=== PATIENT | female | born 1960 | race Caucasian/White ===

== ENCOUNTER 2018-11-03 10:00 | Outpatient (RCR) | payer SELFPAY ==
--- NOTE | 2018-09-03 13:05 | HP.PTEVAL_ITS ---
Patient's Visit Information LUH ALBARRAN is a 58 year old F referred to Physical Therapy by Zac Meyer DPM with a diagnosis of LEFT POSTERIOR TIBILAS TENDONITIS. Date of Evaluation: 09/03/18 Physical Therapist: Rudi Gomes PT, Cert MDT, OCS - Visit Plan Frequency: 2x /Week Duration: 4 Weeks Plan: PATIENT IS LATEX ALLERGY ,ADHESIVE TAPE. PATIENT HAS ORTHOTICS IN SHOES. INTIALLY US ,INTO WITH 4% DEX EXTENDED PATCH ,ROM STRENGTHENING EX'S FRITZ - Subjective Findings: This 58 y/o female presents to physical therapy with left posterior tibial tendontis for 2 years which has progressively worse past several months. Intially,tried brace per Betsy and provided orthothitcs which helped. Patient had MRI showed posterior tibial tendonitis. Patient symptoms worse with walking and standing impairs housework chores and ADL'S.Denies parathesia/tingling. Patient pain affects sleeping.ALLERGIES : LATEX ,ADHESIVE TAPE. Patient symptoms affect QOL and ADL'S/housework chores. SOCAIL: . VOCATION: homemaker - Pain Right Foot Pain Intensity (Out of 10): 8 Pain Intensity Range: 10 - Objective POSTURE: MEDIAL. GAIT: ambulates with anatalgic gait left side. NEURO: intact denies parathesia/tingling. PALPATION: tender posterior tibilalas tendon. AROM: dorsiflexion 10 degrees,Planterflexion 65 degrees,inversion 40 degrees,eversion 5 degrres. MMT: DF 4/5,posterior tibials tendon 4-/5 pain perneous 4/5 ,G-S 4-/5 MILD PAIN - Goals Goal 1:: Patient to be Independant with HEP Goal Time Frame: 2-4 Weeks Goal 2:: Decrease pain PTT by 40% -50% or greater to improve function with gait Goal Time Frame: 4-6 Weeks Goal 3:: Patient ambulate with normal myles 80% of the time Goal Time Frame: 2-4 Weeks Goal 4:: Increase strength ankle 4/5 posterior tibials to improve arch support Goal Time Frame: 2-4 Weeks Goal 5:: Patient to improve LEFS score by 5 points or greater Goal Time Frame: 2-4 Weeks - Rehabilitation Potential Physical Therapy Diagnosis: This patient has left posterior tibilas tendon for 2 years with pain,tender posterior tibilas impairs walking,standing and ADL'S,TE Rehabilitation Potential: Good - Anticipated Interventions Patient/Client Instruction: Educate patient on: Condition, Plan of Care For the Purpose of:: To decrease pain, To increase ROM, To improve ability to perform ADL's, To increase tolerance to activity/condition/position, To improve ability of physical actions for home/community/work/leisure, To improve health of tissue, To decrease soft tissue restriction, To increase flexibility/ROM, To improve ability to perform tasks related to life management Therapeutic Exercise to Include: Strength training, Flexibilty training, Active ROM Comment: ANKLE For the Purpose of:: To decrease pain, To improve nutrient delivery to tissue, To increase oxygenation perfusion, To improve muscle performance and motor function, To increase tolerance to activity/condition/position, To improve performance and independence with ADL's, To improve health of tissue, To decrease soft tissue restriction, To increase flexibility/ROM, To reduce risk of recurrence Iontophoresis (with Dexamethozone, with Acetic acid): Yes - 4% DEX Cryotherapy (ice pack, ice massage): Yes Thermo therapy (hot pack): Yes Ultrasound (thermal/non thermal): Yes For the Purpose of:: To decrease pain, To decrease swelling/inflammation, To increase ROM, To improve nutrient delivery to tissue, To increase oxygenation perfusion, To improve health of tissue, To decrease soft tissue restriction Thank you for the opportunity to evaluate your patient. For Medicare and Medicare HMO plans, please review the plan of care and approve it. It will need to be FAXED BACK to us at [phone] for Medicare purposes. For Medicare only, by signing this I certify the plan of care. Please let me know if there are questions or concerns regarding this plan of c are. Physician Signature: Date:
--- NOTE | 2018-11-04 11:56 | HP.PTDCSUM ---
HP - PT D/C Summary It has been my pleasure to treat LUH ALBARRAN under orders from Zac Meyer DPM, for the diagnosis of LEFT POSTERIOR TIBILAS TENDONITIS for a total of 7 visit(s). Discharge Date: 11/04/18 Please see the following information for a summary of their discharge status. - Subjective Subjective: Patient doing better,siffness in ankle joint - Pain Right Foot Pain Intensity (Out of 10): 1 - Overall Improvement % Improvement: 75 - Objective Objective/Function: GAIT: normal cadance. NEURO:intact. AROM: dorsiflexion 5 degrees ,eversion 10,inversion 35 degrees,plantarflexion 65 degrees. MMT: 4/5 ankle. PALPATION: unremarkable - Goals Goal 1:: Patient to be Independant with HEP Goal Progress: Goal Met Goal 2:: Decrease pain PTT by 40% -50% or greater to improve function with gait Goal Progress: Goal Met Goal 3:: Patient ambulate with normal myles 80% of the time Goal Progress: Goal Met Goal 4:: Increase strength ankle 4/5 posterior tibials to improve arch support Goal Progress: Goal Met Goal 5:: Patient to improve LEFS score by 5 points or greater Goal Progress: Goal Met - Plan Plan: D/C TO HEP - D/C Information Discharge Comments: HEP If there are questions or concerns regarding this patient's physical therapy, please feel free to call me at [phone]. Thank you for the referral of this patient. Sincerely, Rudi Gomes, PT, Cert MDT, OCS
== END 2018-11-03 19:00 | disposition home or self-care (01) ==
LOC: PT 10:00
PROVIDERS: Family Provider Family Medicine; PCP Family Medicine; Referring Provider Podiatrist; Visit Provider Podiatrist
DX: M76.822 Posterior tibial tendinitis, left leg (principal)
CPT/HCPCS: 97033; 97035; 97162; 97530

== ENCOUNTER → 2019-10-22 20:00 | Outpatient (CLI) | payer SELFPAY ==
[2019-10-05 10:56] VITALS: BMI 34.0
== END ==
PROVIDERS: PCP Family Medicine; Referring Provider Internal Medicine Cardiovascular Disease; Visit Provider Internal Medicine Cardiovascular Disease
DX: G47.10 Hypersomnia, unspecified (principal); I10 Essential (primary) hypertension; R06.83 Snoring; R07.9 Chest pain, unspecified; R94.31 Abnormal electrocardiogram [ECG] [EKG]
CPT/HCPCS: 95810

== ENCOUNTER → 2019-10-25 09:30 | Outpatient (CLI) | payer SELFPAY ==
[2019-10-05 10:56] VITALS: BMI 34.0
--- NOTE | 2019-10-25 09:34 | ECHOD_ITS ---
Reason For Study: CP, ABN EKG Procedure This was a 2D Doppler, Color Flow transthoracic echocardiogram. Exam performed in department. Left Ventricle Normal size and thickness. The estimated ejection fraction is 65 %. Stage 1 diastolic dysfunction. No regional wall motion abnormalities noted. Right Ventricle Normal size and thickness. Normal systolic function. Atria Normal left atrium. Normal right atrium. Normal atrial septum. Mitral Valve The mitral valve is structurally normal. No prolapse or stenosis seen. Trivial mitral valve insufficiency. Tricuspid Valve Normal tricuspid valve. Unable to estimate RV systolic pressure due to insufficient tricuspid regurgitant envelope. Aortic Valve Normal aortic valve. Trisinus/trileaflet aortic valve. Pulmonic Valve Normal pulmonic valve. Great Vessels Normal aortic root. Normal arch. Normal inferior vena cava. Inferior vena cava collapse with sniff. Pericardium/Pleural No pericardial effusion. MMode/2D Measurements & Calculations LVIDd: 3.8 cm IVSd: 1.2 cm Ao root diam: 3.5 cm LVIDs: 2.6 cm LVPWd: 1.2 cm FS: 32.3 % LAV(MOD-bp): 43.7 ml LA A4 area: 15.6 cm2 LA dimension(2D): 3.6 cm LAV(MOD-bp) Indexed: 21.1 ml/m2 LAV(MOD-sp2): 49.8 ml LAV(MOD-sp4): 37.7 ml RA A4 area: 10.1 cm2 Time Measurements MV dec time: 0.25 sec Doppler Measurements & Calculations MV E max thad: 69.6 cm/sec Lat Peak E' Thad: 7.4 cm/sec Med Peak E' Thad: 3.7 cm/sec MV A max thad: 83.2 cm/sec E/E' lat: 9.4 E/E' med: 18.6 MV E/A: 0.84 Ao V2 max: 142.3 cm/sec LV V1 max: 125.7 cm/sec Ao max P.1 mmHg LV V1 max P.3 mmHg Interpretation Summary The estimated ejection fraction is 65 %. Stage 1 diastolic dysfunction. Trivial mitral valve insufficiency. Unable to estimate RV systolic pressure due to insufficient tricuspid regurgitant envelope. There is no comparison study available. Ordering Physician: Ramon France Referring Physician: CHARLOTTE MITCHELL Performed By: Breana Mobley, VALERIA, RVT
--- NOTE | 2019-10-25 09:34 | STE_ITS ---
Reason For Study: Abnormal EKG; Chest Pain Stress Results Protocol: Nicolás Protocol Maximum Predicted HR: 160 bpm Target HR: 136 bpm % Maximum Predicted HR: 94 % DurationHeart Rate Stage (mm:ss) (bpm) BP Comment Baseline 63 138/74No Chest Pain Nicolás Protocol Stage I 3:00 108 146/80No Chest Pain Nicolás Protocol Stage II 3:00 126 160/78No Chest Pain Nicolás Protocol Stage III 2:00 150 170/80No Chest Pain Recovery 91 138/84No Chest Pain Stress Duration: 8:00 mm:ss Maximum Stress HR: 150 bpm METS: 10 Baseline Echocardiogram Findings The estimated ejection fraction is 65 %. Stress Echo Wall motion Data Resting WM Intermediate WM Stress WM Resting Wall Motion Wall Motion Stress No regional wall motion No regional wall motion abnormalities noted. abnormalities noted. EKG Data The baseline ECG displays normal sinus rhythm. The patient exercised according to the regular Nicolás protocol for a total duration of 8:00. The maximum heart rate attained was 150 beats per minute. This was 93% of maximum predicted heart rate. The patient exercised into stage 3 of the Nicolás protocol. During stress, there were no ST or T wave changes noted to suggest ischemia. No arrhythmias noted. No clinical angina was noted. Interpretation Summary The estimated ejection fraction is 65 %. Normal, adequate, treadmill echocardiogram. Negative for ischemia by EKG and echocardiographic criteria. No anginal symptoms noted. No arrhythmias noted. Average exercise capacity for age. Appropriate blood pressure response to exercise. Test terminated due to target heart rate achieved. Final LVEF is 75%. Patient tolerated procedure well. No complications. Ordering Physician: Ramon France Referring Physician: Scott Mayer Performed By: Breana Mobley, RDCS, RVT
== END ==
PROVIDERS: PCP Family Medicine; Referring Provider Internal Medicine Cardiovascular Disease; Visit Provider Internal Medicine Cardiovascular Disease
DX: R07.9 Chest pain, unspecified (principal); I10 Essential (primary) hypertension; R94.31 Abnormal electrocardiogram [ECG] [EKG]
CPT/HCPCS: 93017; 93306; 93350

== ENCOUNTER → 2019-10-30 10:05 | Outpatient (CLI) | payer SELFPAY ==
[2019-10-05 10:56] VITALS: BMI 34.0
[2019-10-30 10:49] LABS: AST(SGOT) 23 U/L (15-37); Alanine Aminotransfer ALT/SGPT 36 U/L (13-56); Albumin, Serum 3.9 g/dL (3.2-5.0); Alkaline Phosphatase 87 U/L (45-117); Bilirubin, Direct 0.09 mg/dL (0.00-0.30); Cholesterol 155 mg/dL (200); Globulin 3.8 g/dL (2.2-4.2); High Density Lipoprotein 39 mg/dL; Protein, Total 7.7 g/dL (6.4-8.2); Triglycerides 196 mg/dL; Very Low Density Lipoprotein 39 mg/dL (5-40)
== END ==
PROVIDERS: PCP Family Medicine; Referring Provider Internal Medicine Cardiovascular Disease; Visit Provider Internal Medicine Cardiovascular Disease
DX: I10 Essential (primary) hypertension (principal); R07.9 Chest pain, unspecified; R94.31 Abnormal electrocardiogram [ECG] [EKG]
CPT/HCPCS: 36415; 80061; 80076

== ENCOUNTER → 2020-05-16 10:24 | Outpatient (CLI) | payer SELFPAY ==
[2020-03-07 05:50] VITALS: BMI 34.6
--- NOTE | 2020-05-16 10:28 | NM_ITS ---
CLINICAL: 60-year-old female with reported history of epigastric pain. RADIONUCLIDE HEPATOBILIARY SCINTIGRAPHY COMPARISON: None available FINDINGS: Following the intravenous administration of 5.1 mCi of 99m Tc Mebrofenin, hepatobiliary images reveal: 1. Relatively prompt and homogeneous radiopharmaceutical concentration is noted by a normal sized liver. No parenchymal defects are identified. 2. Gallbladder activity is identified at 15 minutes post radiopharmaceutical administration. 3. Small intestinal tract is observed at 45 minutes following tracer injection. 4. Washout of the radiopharmaceutical by the hepatic parenchyma appears qualitatively normal. 5. There is scintigraphic evidence of pre-CCK duodenal gastric reflux initiating at 45 minutes post radiotracer provision. Cholecystokinin (0.02 ug/kg) was administered intravenously over a 30-minute period. The post CCK gallbladder ejection fraction calculated at 20 minutes following Cholecystokinin administration was noted to be < 5 % (normal greater than 35%). There is scintigraphic evidence of continued post CCK duodenal gastric reflux. PA/Hepatobilliary Img w/Pharm Int IMPRESSION: 1. ABNORMAL 99m Tc Mebrofenin hepatobiliary imaging examination with Cholecystokinin. A. A gallbladder ejection fraction calculated to be less than 35% following the administration of Cholecystokinin is consistent with the presence of functional hepatobiliary disease (gallbladder and/or sphincter of Oddi dyskinesia) and/or organic hepatobiliary disease (chronic acalculous cholecystitis and/or cystic duct syndrome) in patients with intermediate to high pretest likelihoods of hepatobiliary illness. (Sunny Levine et al, Journal of Nuclear Medicine 32:1695, 1990). B. There is scintigraphic evidence of pre-post CCK duodenal-gastric reflux as defined above. (Gael et al, Nucl Med Keri Ailsia Press pg. 35, 1980). Electronically Signed: Gaudencio Schroeder DO at 22:53 EDT Tel , Service support ,
== END ==
PROVIDERS: PCP Family Medicine; Referring Provider Family Medicine; Visit Provider Family Medicine
DX: R10.11 Right upper quadrant pain (principal)
CPT/HCPCS: 78227; A9537; J2805

== ENCOUNTER 2023-03-22 09:07 | Inpatient (IN) | payer OTHER, SELFPAY ==
[2023-03-22 09:09] VITALS: BP 122/89; PULSE 90; RESP 18; TEMP 36.6; O2SAT 95; BMI 30.3
--- NOTE | 2023-03-22 09:21 | RAD_ITS ---
INDICATION: diffuse pain EXAMINATION/TECHNIQUE: X-RAY - XR Abdomen 1 View COMPARISON: No prior examinations are available for comparison. FINDINGS: BOWEL GAS PATTERN: Nonspecific somewhat distended gaseous bowel loops and colon could be due to ileus. Early distal colonic obstruction is less likely. FREE AIR: Not assessed on a single supine view. ORGANOMEGALY: Not seen. CALCIFICATIONS: No abnormal calcifications observed. LOWER CHEST: No acute pathology. BONES AND SOFT TISSUES: No acute pathology. RAD/Abdomen Single View IMPRESSION: Nonspecific distended gaseous bowel loops and colon could be due to ileus. Electronically Signed: Karel Schulte MD at 10:39 EDT ,
--- NOTE | 2023-03-22 09:22 | ED.VIS.GI ---
HPI HPI - GI History of Present Illness Chief Complaint: Abd Pain Informant: patient Narrative Narrative: Patient states she has had abdominal discomfort and constipation for the past week or 2 since she stopped taking her metformin, this was discontinued at her doctor's recommendation because it was causing a lot of diarrhea. Since then she has tried retaking the metformin in addition to MiraLAX, Metamucil, other laxatives, even trying to take a gloved finger and put it up her rectum, she was not able to feel any stool, and none of this is helping. Prior cholecystectomy no other abdominal surgeries no other symptoms. Nausea today but no vomiting. [facility] Medical History (Updated 03/22/23 @ 14:[address] Dorian Medeiros MD) Abnormal EKG Chest pain Diabetes Essential hypertension GERD (gastroesophageal reflux disease) History of DVT (deep vein thrombosis) (07/07/13) Hypersomnolence TEX (obstructive sleep apnea) Snoring Home Medications paroxetine HCl 20 mg tablet 20 mg PO DAILY 08/16/16 [History Last Taken Unknown] metformin 750 mg tablet,extended release 24 hr 750 mg PO BID 03/22/23 [History Last Taken Unknown] Allergy/AdvReac Type Severity Reaction Status Date / Time adhesive tape Allergy Itching Verified 03/22/23 09:11 latex Allergy Itching Verified 03/22/23 09:11 Surgical History (Updated 03/22/23 @ 09:[address] Dorian Medeiros MD) History of cholecystectomy history of cystoscopy and vaginal sling (08/30/16) History of right knee joint replacement (05/11/19) S/P robot-assisted surgical procedure Social History (Updated 03/07/20 @ 12:[address] Nicolás Jenkins MD) Smoking Status: Never smoker ROS ROS ED Constitutional Constitutional ED: Denies chills or fever(s) Eyes Eyes: Denies change in vision or diplopia ENT ENT ED: Denies rhinorrhea or sore throat Cardiovascular Cardiovascular: Denies chest pain or palpitations Respiratory/Chest Respiratory/Chest: Denies cough or dyspnea Gastrointestinal Gastrointestinal: Reports abdominal pain, constipation and nausea; Denies diarrhea or vomiting Genitourinary Genitourinary ED: Denies dysuria or hematuria Musculoskeletal Musculoskeletal: Denies back pain or neck pain Integumentary Denies abscess or rash Neurologic Neurologic: Denies headache(s), paresthesias or weakness Psychiatric Psychiatric: Denies anxiety or suicidal thoughts EXAM Physical Exam Const Vital Signs: 03/22/23 09:09 03/22/23 10:29 03/22/23 13:44 Temperature 98 F Temperature Source Temporal Pulse Rate 90 73 Respiratory Rate 18 16 14 Blood Pressure 122/89 H 124/79 H Blood Pressure Mean 100 94 Pulse Ox 95 98 Oxygen Delivery Method Room Air Room Air Positive well nourished and well developed General Appearance ED: well developed and NAD HEENT Reports moist mucous membranes normocephalic and atraumatic Eyes PERRL and EOMs intact bilaterally Neck full ROM and supple Resp normal respiratory effort and clear to auscultation bilaterally Cardio regular rate, regular rhythm and no murmurs GI GI Narrative: Distended abdomen, mild diffuse nonfocal tenderness no palpable masses Auscultation: normoactive bowel sounds Palpation: soft Back/Spine no CVA tenderness General Back: other FROM Extremity normal to inspection General Extremety ED: Negative for edema, pulses abnormal or tenderness General Extremity: Negative for edema or pulses abnormal Neuro oriented x3, CN's II-XII intact bilaterally and no sensory deficits noted Sensorium / Orientation: awake and alert Motor Exam: strength 5/5 throughout Psych mental status grossly normal and thought process normal Skin no rashes or lesions noted and no wounds MDM MDM MDM Narrative Medical decision making narrative: Patient feels like she is constipated, she is distended but not vomiting. Therefore we started with labs, KUB, and a soapsuds enema which she was amenable to. The KUB did not show a significant amount of stool in the colon rather and showed 1 view on my interpretation gaseous distention of the colon, radiology in agreement. No free air to suggest perforation, nor is my exam suspicious for this. After the soapsuds enema, she really did not have any improvement, she was able to hold it in for quite a long time and expelled just fluid and barely any feces. Given all of this, although she does not have a significant leukocytosis right now, I thought it would be better to perform a CT which I did with oral and IV contrast. Radiology called me concerning the findings of the CT, which basically shows what appears to be a colonic ileus in addition to an appendicolith without signs of inflammatory changes to suggest obvious appendicitis although he was unable to rule out early acute appendicitis. Radiologist states this does not appear to be a colonic obstruction. Discussed w/ Surgery Dr. Fields, advises admission to medicine and he will consult if needed, but no surgical intervention indicated at this time. History & Record Review Additional record(s) reviewed:: Prior labs Lab Data Attestation: I reviewed the patient's lab results. Labs: Laboratory Results - last 24 hr 03/22/23 03/22/23 09:25 13:52 WBC 7.0 RBC 5.11 Hgb 15.1 H Hct 47.8 H MCV 93.5 MCH 29.5 MCHC 31.6 L RDW Std Deviation 42.7 RDW Coeff of Lana 12.4 Plt Count 281 MPV 9.7 Immature Gran % (Auto) 0.300 Neut % (Auto) 45.5 L Lymph % (Auto) 44.3 H Alger % (Auto) 7.7 Eos % (Auto) 1.1 Baso % (Auto) 1.1 H Absolute Neuts (auto) 3.2 Absolute Lymphs (auto) 3.09 Nucleated RBC % 0 Sodium 137 Potassium 4.7 Chloride 101 Carbon Dioxide 30.0 Anion Gap 6 BUN 13 Creatinine 0.88 Estim Creat Clear Calc 62.81 Est GFR (MDRD) Af Amer 83 Est GFR (MDRD) Non-Af 68 BUN/Creatinine Ratio 14.7 Glucose 165 H Calcium 9.9 Total Bilirubin 0.50 AST 11 L ALT 27 Alkaline Phosphatase 88 Total Protein 8.4 H Albumin 4.3 Globulin 4.1 Albumin/Globulin Ratio 1.0 Lipase 36 POC Glucose 75 Radiography Diagnostic Testing: Clinical Impression(s) from Imaging Studies KUB X-Ray 03/22/23 09:21 IMPRESSION: Nonspecific distended gaseous bowel loops and colon could be due to ileus. Electronically Signed: Karel Schulte MD at 10:39 EDT , Abdomen/Pelvis CT 03/22/23 12:08 IMPRESSION: 1. Mild thickening of the appendix with appendicolith. Early appendicitis cannot be entirely excluded. 2. Distended gaseous which could be due to colonic ileus. Electronically Signed: Karel Schulte MD at 14:39 EDT , ADDENDUM: 03/22/23 1449 IMPRESSION: 1. Mild thickening of the appendix with appendicolith. Early appendicitis cannot be entirely excluded. 2. Distended gaseous which could be due to colonic ileus. N.B. : The above Results were Read Back by Karel Schulte MD to Dorian Medeiros MD, and understanding confirmed on 03/22/2023 14:42:25 (ET). Electronically Signed: Karel Schulte MD at 14:39 EDT , Management Discussion w/another healthcare provider: Hospitalist, Line Department Supervisor (surgery) and Radiologist Discharge Plan Triage Chief Complaint: Abd Pain ED Provider: Dorian Medeiros Dx/Rx/DC Orders Clinical Impression: Paralytic ileus of large intestine, Diffuse abdominal pain, Appendicolith Prescriptions: No Action paroxetine HCl 20 MG tablet 20 mg PO DAILY Patient Comments: DEPRESSION metformin 750 mg tablet extended release 24 hr 750 mg PO BID Patient Comments: TAKE 1 TABLET BY MOUTH TWICE DAILY WITH FOOD Primary Care Provider: Scott Mayer Referrals: Scott Mayer DO [Primary Care Provider] - Disposition Disposition: Acute Care [facility]
[2023-03-22 09:37] LABS: Absolute Lymphocyte Count 3.09 X10^3/uL (0.83-4.51); Absolute Neutrophil Count 3.2 X10^3/uL (2.0-7.7); Basophil# 0.08 X10^3/uL; Basophil% 1.1 % (0-1); Eosinophil# 0.08 X10^3/uL; Eosinophils% 1.1 % (0-5); Hematocrit 47.8 % (37-47); Hemoglobin 15.1 g/dL (12.0-15.0); Lymphocyte # 3.09 X10^3/ul (0.83-4.51); Lymphocyte % 44.3 % (19-41); Mean Corp Hgb Conc 31.6 g/dL (32-36); Mean Corpuscular Hgb 29.5 pg (27.0-32.0); Mean Corpuscular Volume 93.5 fL (81-99); Mean Platelet Vol. 9.7 fl (6.2-12.0); Monocyte# 0.54 X10^3/uL; Monocyte% 7.7 % (0-10); NRBC Flagged by Analyzer 0 % (0-5); Neutrophil # 3.16 X10^3/uL (2.7-7.7); Neutrophil % 45.5 % (47-70); Platelet Count 281 K/mm3 (150-450); RBC Distribution Width CV 12.4 % (11.6-14.6); RBC Distribution Width SD 42.7 fl (35.1-43.9); Red Blood Count 5.11 M/mm3 (4.2-5.4)
[2023-03-22 09:55] LABS: AST(SGOT) 11 U/L (15-37); Alanine Aminotransfer ALT/SGPT 27 U/L (13-56); Albumin, Serum 4.3 g/dL (3.2-5.0); Alkaline Phosphatase 88 U/L (45-117); Anion Gap 6 (5-15); BUN 13 mg/dL (7-18); BUN/Creat Ratio 14.7 RATIO (10-20); Calcium,Total 9.9 mg/dL (8.5-10.1); Chloride 101 mmol/L (98-107); Creatinine, Serum 0.88 mg/dL (0.55-1.02); EST Glomerular Filtration Rate 68 mL/min (>60); Est Glom Filt Rate - Afr Amer 83 mL/min (>60); Estimated Creatinine Clearance 62.81 ml/min; Globulin 4.1 g/dL (2.2-4.2); Glucose 165 mg/dL (74-106); Lipase 36 U/L (13-75); Potassium 4.7 mmol/L (3.5-5.1); Protein, Total 8.4 g/dL (6.4-8.2); Sodium Level 137 mmol/L (136-145)
[2023-03-22 10:29] VITALS: RESP 16
--- NOTE | 2023-03-22 12:08 | CT_ITS ---
We are attempting to reach an attending provider to discuss findings. An addendum with communication details will be sent when the communication is complete. STUDY: CT ABDOMEN AND PELVIS WITH CONTRAST REASON FOR EXAM: Female, 63 years old. Distension, pain, nausea RADIATION DOSAGE (If Supplied By Facility): CTDIvol = ( 17.25 ) mGy, DLP = ( 1132.61 ) mGycm TECHNIQUE: Oral and IV Gastrografin and 100mL Isovue-300 was administered. Transaxial images were obtained from the dome of the diaphragm to the symphysis pubis . Multiplanar coronal and sagittal images were reformatted. Individualized Dose Optimization Techniques Were Used For This CT. COMPARISON: No prior examinations are available for comparison. FINDINGS: The visualized lung bases are unremarkable. The visualized portions of the heart are within normal limits. Normal liver. There is non-visualization of the gallbladder, which may be secondary to either contraction or a prior cholecystectomy. Normal spleen. Normal pancreas. Normal bilateral adrenal glands. Normal visualized stomach. The small bowel loops are normal in caliber. The fused the distended gas-filled colon extending from the cecum to the level of the rectum. Fecal retention in the ascending colon. Mild thickening of the appendix measuring up to 8 mm. Appendicolith within the appendix. No significant periappendiceal inflammatory changes however seen. Normal abdominal aorta. No retroperitoneal adenopathy. Normal right kidney. 3.8 cm simple cyst in the left kidney for which no further follow-up exam is needed. Normal urinary bladder. There is a small umbilical hernia containing fat. Levoscoliosis of the lumbar spine. No demonstrated acute osseous changes. CT/Abdomen/Pelvis WITH Contrast IMPRESSION: 1. Mild thickening of the appendix with appendicolith. Early appendicitis cannot be entirely excluded. 2. Distended gaseous which could be due to colonic ileus. Electronically Signed: Karel Schulte MD at 14:39 EDT ,
[2023-03-22 13:44] VITALS: BP 124/79; PULSE 73; RESP 14; O2SAT 98
[2023-03-22 14:11] LABS: Bedside Glucose 75 mg/dL (74-106)
--- NOTE | 2023-03-22 15:36 | NURSING ---
DR HENNESSY FOR DR YEUNG
--- NOTE | 2023-03-22 15:41 | NURSING ---
MED SURG KOTSONIS COLONIC ILEUS, APPENDICOLITH R/O EARLY APPENDICITIS
[2023-03-22 15:50] VITALS: BP 118/76; PULSE 78; RESP 14; TEMP 36.6; O2SAT 98
--- NOTE | 2023-03-22 15:55 | HP.PCM.HOS_ITS ---
HPI - General General Date of Admission: 03/22/23 HPI Narrative LUH ALBARRAN, is a 63 F who presents to the hospital with 2 weeks of constipation and abdominal distention. She denies any significant abdominal pain. She has had some nausea and vomiting today and she has had reduced p.o. intake. No fevers or chills and in the ER she had a normal white count. CT scan was obtained that showed constipation and possible early appendicitis with mild thickening of the appendix, no air at the tip and an appendicolith. She denies any major changes to her medication other than transitioning off of metformin and onto a different diabetic medication. [facility] Medical History (Updated 03/22/23 @ 14:[address] Dorian Medeiros MD) Abnormal EKG Chest pain Diabetes Essential hypertension GERD (gastroesophageal reflux disease) History of DVT (deep vein thrombosis) (07/07/13) Hypersomnolence TEX (obstructive sleep apnea) Snoring Home Medications paroxetine HCl 20 mg tablet 20 mg PO DAILY depression 08/16/16 [History Last Taken 08/21/22] glimepiride 4 mg tablet 4 mg PO DAILY diabetes 03/22/23 [History Last Taken 03/22/23 09:00] metformin 750 mg tablet,extended release 24 hr 750 mg PO DAILY diabetes 03/22/23 [History Last Taken 03/22/23 09:00] omeprazole 20 mg tablet,delayed release 20 mg PO DAILY heartburn 03/22/23 [History Last Taken 03/22/23 09:00] telmisartan 40 mg tablet 40 mg PO DAILY htn 03/22/23 [History Last Taken 03/22/23 09:00] Allergy/AdvReac Type Severity Reaction Status Date / Time adhesive tape Allergy Itching Verified 03/22/23 09:11 latex Allergy Itching Verified 03/22/23 09:11 Surgical History (Updated 03/22/23 @ 09:[address] Dorian Medeiros MD) History of cholecystectomy history of cystoscopy and vaginal sling (08/30/16) History of right knee joint replacement (05/11/19) S/P robot-assisted surgical procedure Social History (Updated 03/07/20 @ 12:[address] Nicolás Jenkins MD) Smoking Status: Never smoker ROS Constitutional Constitutional: Denies chills, fatigue, fever(s) or malaise Eyes Eyes: Denies blurry vision ENT HEENT: Denies headache(s) or nasal discharge Cardiovascular Cardiovascular: Denies chest pain, dyspnea on exertion or syncope Respiratory/Chest Respiratory/Chest: Denies cough, shortness of breath at rest or shortness of breath with exertion Gastrointestinal Gastrointestinal: Reports bloating and constipation; Denies diarrhea, nausea or vomiting Genitourinary Genitourinary: Denies dysuria Neurologic Neurologic: Denies focal weakness, numbness or tremor(s) Psychiatric Psychiatric: Denies anxiety or depression Vital Signs Vital Signs Vital Signs: 03/22/23 09:09 03/22/23 10:29 03/22/23 13:44 Temperature 98 F Temperature Source Temporal Pulse Rate 90 73 Respiratory Rate 18 16 14 Blood Pressure 122/89 H 124/79 H Blood Pressure Mean 100 94 Pulse Ox 95 98 Oxygen Delivery Method Room Air Room Air 03/22/23 15:50 Temperature 98 F Temperature Source Temporal Pulse Rate 78 Respiratory Rate 14 Blood Pressure 118/76 Blood Pressure Mean 90 Pulse Ox 98 Oxygen Delivery Method Room Air Weight Weight: 193 lb 9.6 oz Body Mass Index (BMI) 30.3 Physical Exam Narrative General: Alert, Oriented x3, Cooperative, No apparent distress HEENT: Atraumatic, PERRLA, EOMI, Normocephalic Oral: Moist Mucosa Neck: Supple, No JVD Lungs: Clear to auscultation, Normal air movement, No rhonchi, No wheeze, No rales Cardiovascular: Regular rate, Regular Rhythm, Normal S1, Normal S2, No murmurs Abdomen: Soft, Non Tender, mild distention, No Hepato-splenomegaly Extremities: No edema, Capillary Refill Less than 3 Seconds Skin: No rashes, No breakdown Musculoskeletal: No Tenderness to Palpation of Joints or Extremities Neurological: Cranial nerves II-XII grossly intact, Motor Exam 5/5 strength throughout, Sensory exam intact to light touch and pain Psych/Mental Status: Normal Affect, Appropriate Results Lab / Micro Data 03/22/23 09:25 03/22/23 09:25 Labs: Laboratory Results - last 24 hr 03/22/23 09:25: WBC 7.0, RBC 5.11, Hgb 15.1 H, Hct 47.8 H, MCV 93.5, MCH 29.5, M CHC 31.6 L, RDW Std Deviation 42.7, RDW Coeff of Lana 12.4, Plt Count 281, MPV 9.7, Immature Gran % (Auto) 0.300, Neut % (Auto) 45.5 L, Lymph % (Auto) 44.3 H, [place] % (Auto) 7.7, Eos % (Auto) 1.1, Baso % (Auto) 1.1 H, Absolute Neuts (auto) 3.2, Absolute Lymphs (auto) 3.09, Nucleated RBC % 0, Sodium 137, Potassium 4.7, Chloride 101, Carbon Dioxide 30.0, Anion Gap 6, BUN 13, Creatinine 0.88, Estim Creat Clear Calc 62.81, Est GFR (MDRD) Af Amer 83, Est GFR (MDRD) Non-Af 68, BUN/Creatinine Ratio 14.7, Glucose 165 H, Calcium 9.9, Total Bilirubin 0.50, AST 11 L, ALT 27, Alkaline Phosphatase 88, Total Protein 8.4 H, Albumin 4.3, Globulin 4.1, Albumin/Globulin Ratio 1.0, Lipase 36 03/22/23 13:52: POC Glucose 75 Radiology Impression KUB X-Ray 03/22/23 09:21 IMPRESSION: Nonspecific distended gaseous bowel loops and colon could be due to ileus. Electronically Signed: Karel Schulte MD at 10:39 EDT , Abdomen/Pelvis CT 03/22/23 12:08 IMPRESSION: 1. Mild thickening of the appendix with appendicolith. Early appendicitis cannot be entirely excluded. 2. Distended gaseous which could be due to colonic ileus. Electronically Signed: Karel Schulte MD at 14:39 EDT , ADDENDUM: 03/22/23 0049 IMPRESSION: 1. Mild thickening of the appendix with appendicolith. Early appendicitis cannot be entirely excluded. 2. Distended gaseous which could be due to colonic ileus. N.B. : The above Results were Read Back by Karel Schulte MD to Dorian Medeiros MD, and understanding confirmed on 03/22/2023 14:42:25 (ET). Electronically Signed: Karel Schulte MD at 14:39 EDT , Assessment & Plan Assessment/Plan (1) Appendicolith: (2) Paralytic ileus of large intestine: PLAN: Plan 1. Paralytic ileus of the large intestine with possible appendicolith and early appendicitis ? We will hold off on antibiotics at this time as she has no white count or fevers ? We will consult general surgery to follow along ? We will place her on a diabetic diet and will provide multiple stool softeners and an enema may also benefit from Reglan for nausea if the Zofran does not work 2. DM2 ? We will hold her oral regimen ? Placed on sliding scale insulin ? Accu-Cheks ACHS ? We will monitor and adjust as necessary 3. HTN ? Stable ? Can resume her home medications 4. Anxiety/depression ? Stable ? Continue with her home medications 5. GERD ? Stable ? Continue with PPI DVT: Lovenox 75 minutes was spent on direct patient care, including documentation as well as chart review and collaboration with colleagues
[2023-03-22 16:31] VITALS: BMI 29.3
[2023-03-22] MEDS: Polyethylene Glycol 3350 17 GM PACKET PO (18:55)
[2023-03-22 19:14] LABS: Bedside Glucose 81 mg/dL (74-106)
[2023-03-22 21:00] VITALS: BP 124/85; PULSE 62; RESP 18; TEMP 36.4; O2SAT 93
[2023-03-22] MEDS: Acetaminophen 500 MG Tablet PO (21:01)
[2023-03-22 22:36] LABS: Bedside Glucose 111 mg/dL (74-106)
[2023-03-23 04:00] VITALS: BP 135/85; PULSE 76; RESP 18; TEMP 36.6; O2SAT 95
[2023-03-23 06:40] LABS: Absolute Lymphocyte Count 3.74 X10^3/uL (0.83-4.51); Absolute Neutrophil Count 3.1 X10^3/uL (2.0-7.7); Basophil# 0.07 X10^3/uL; Basophil% 0.9 % (0-1); Eosinophil# 0.07 X10^3/uL; Eosinophils% 0.9 % (0-5); Hematocrit 47.3 % (37-47); Hemoglobin 15.1 g/dL (12.0-15.0); Lymphocyte # 3.74 X10^3/ul (0.83-4.51); Lymphocyte % 49.9 % (19-41); Mean Corp Hgb Conc 31.9 g/dL (32-36); Mean Corpuscular Hgb 29.8 pg (27.0-32.0); Mean Corpuscular Volume 93.3 fL (81-99); Mean Platelet Vol. 9.9 fl (6.2-12.0); Monocyte# 0.51 X10^3/uL; Monocyte% 6.8 % (0-10); NRBC Flagged by Analyzer 0 % (0-5); Neutrophil # 3.09 X10^3/uL (2.7-7.7); Neutrophil % 41.2 % (47-70); Platelet Count 307 K/mm3 (150-450); RBC Distribution Width CV 12.4 % (11.6-14.6); RBC Distribution Width SD 42.7 fl (35.1-43.9); Red Blood Count 5.07 M/mm3 (4.2-5.4); White Blood Count 7.5 K/mm3 (4.4-11.0)
[2023-03-23 07:05] LABS: Anion Gap 10 (5-15); BUN 12 mg/dL (7-18); BUN/Creat Ratio 15.1 RATIO (10-20); Calcium,Total 9.2 mg/dL (8.5-10.1); Chloride 100 mmol/L (98-107); Creatinine, Serum 0.79 mg/dL (0.55-1.02); EST Glomerular Filtration Rate 78 mL/min (>60); Est Glom Filt Rate - Afr Amer 94 mL/min (>60); Estimated Creatinine Clearance 69.96 ml/min; Glucose 141 mg/dL (74-106); Potassium 4.4 mmol/L (3.5-5.1); Sodium Level 135 mmol/L (136-145)
[2023-03-23 07:10] LABS: Bedside Glucose 124 mg/dL (74-106)
[2023-03-23 07:48] VITALS: BP 118/78; PULSE 70; RESP 18; TEMP 37.1; O2SAT 95
--- NOTE | 2023-03-23 08:59 | EX.PCM.CON.S ---
Assessment & Plan Assessment/Plan (1) Appendicolith: PLAN: The patient has colonic ileus. On CT scan she was found to have an appendicolith. I do not believe she has appendicitis as she does not have any right lower quadrant pain and there is no stranding around the appendix and her white count is normal with no left shift. Unsure as to the etiology of the ileus. I did give her my card and she may follow-up with me for elective appendectomy if she desires to prevent acute appendicitis in the future. She may be discharged home from my standpoint once ileus is improving per the hospitalist team. Reymundo Fields MD Pager: [facility] [address] [place] [address], [address] [place] [address] Office: HPI Consult Data Date of Consult: 03/23/23 HPI Narrative HPI Narrative: LUH ALBARRAN, is a 63 F who presents with abdominal discomfort of 2 weeks. Patient reports that she was taken off her metformin 2 weeks ago due to diarrhea and that is when all this discomfort started. She says she feels constipated and takes a lot of medications including MiraLAX and Colace and magnesium citrate. She says currently she is passing flatus and feels more comfortable than yesterday. She is not complaining of any abdominal pain. She denies fevers or chills. [facility] Medical History (Updated 03/22/23 @ 14:[address] Dorian Medeiros MD) Abnormal EKG Chest pain Diabetes Essential hypertension GERD (gastroesophageal reflux disease) History of DVT (deep vein thrombosis) (07/07/13) Hypersomnolence TEX (obstructive sleep apnea) Snoring Home Medications paroxetine HCl 20 mg tablet 20 mg PO DAILY depression 08/16/16 [History Last Taken 08/21/22] glimepiride 4 mg tablet 4 mg PO DAILY diabetes 03/22/23 [History Last Taken 03/22/23 09:00] metformin 750 mg tablet,extended release 24 hr 750 mg PO DAILY diabetes 03/22/23 [History Last Taken 03/22/23 09:00] omeprazole 20 mg tablet,delayed release 20 mg PO DAILY heartburn 03/22/23 [History Last Taken 03/22/23 09:00] telmisartan 40 mg tablet 40 mg PO DAILY htn 03/22/23 [History Last Taken 03/22/23 09:00] Allergy/AdvReac Type Severity Reaction Status Date / Time adhesive tape Allergy Itching Verified 03/22/23 09:11 latex Allergy Itching Verified 03/22/23 09:11 Surgical History (Updated 03/22/23 @ 09:[address] Dorian Medeiros MD) History of cholecystectomy history of cystoscopy and vaginal sling (08/30/16) History of right knee joint replacement (05/11/19) S/P robot-assisted surgical procedure Social History (Updated 03/07/20 @ 12:[address] Nicolás Jenkins MD) Smoking Status: Never smoker ROS Constitutional Constitutional: Denies anorexia, chills or fatigue Eyes Eyes: Denies blurry vision ENT HEENT: Denies abnormal hearing Cardiovascular Cardiovascular: Denies chest pain Respiratory/Chest Respiratory/Chest: Denies cough or dyspnea Gastrointestinal Gastrointestinal: Reports constipation; Denies abdominal pain or diarrhea Genitourinary Genitourinary: Denies change in urinary stream Musculoskeletal Musculoskeletal: Denies abnormal gait Integumentary Integumentary: Denies jaundice Neurologic Neurologic: Denies dizziness Physical Exam Const alert and oriented x3 HEENT normocephalic Eyes PERRL Resp normal respiratory effort Cardio Rate: regular rate Rhythm: regular rhythm GI soft to palpation, non-tender and non-distended Lab / Micro Data 03/23/23 05:54 03/23/23 05:54 Labs: Laboratory Results - last 24 hr 03/22/23 09:25: WBC 7.0, RBC 5.11, Hgb 15.1 H, Hct 47.8 H, MCV 93.5, MCH 29.5, MCHC 31.6 L, RDW Std Deviation 42.7, RDW Coeff of Lana 12.4, Plt Count 281, MPV 9.7, Immature Gran % (Auto) 0.300, Neut % (Auto) 45.5 L, Lymph % (Auto) 44.3 H, [place] % (Auto) 7.7, Eos % (Auto) 1.1, Baso % (Auto) 1.1 H, Absolute Neuts (auto) 3.2, Absolute Lymphs (auto) 3.09, Nucleated RBC % 0, Sodium 137, Potassium 4.7, Chloride 101, Carbon Dioxide 30.0, Anion Gap 6, BUN 13, Creatinine 0.88, Estim Creat Clear Calc 62.81, Est GFR (MDRD) Af Amer 83, Est GFR (MDRD) Non-Af 68, BUN/Creatinine Ratio 14.7, Glucose 165 H, Calcium 9.9, Total Bilirubin 0.50, AST 11 L, ALT 27, Alkaline Phosphatase 88, Total Protein 8.4 H, Albumin 4.3, Globulin 4.1, Albumin/Globulin Ratio 1.0, Lipase 36 03/22/23 13:52: POC Glucose 75 03/22/23 18:40: POC Glucose 81 03/22/23 20:56: POC Glucose 111 H 03/23/23 05:54: WBC 7.5, RBC 5.07, Hgb 15.1 H, Hct 47.3 H, MCV 93.3, MCH 29.8, MCHC 31.9 L, RDW Std Deviation 42.7, RDW Coeff of Lana 12.4, Plt Count 307, MPV 9.9, Immature Gran % (Auto) 0.300, Neut % (Auto) 41.2 L, Lymph % (Auto) 49.9 H, [place] % (Auto) 6.8, Eos % (Auto) 0.9, Baso % (Auto) 0.9, Absolute Neuts (auto) 3.1, Absolute Lymphs (auto) 3.74, Nucleated RBC % 0, Sodium 135 L, Potassium 4.4, Chloride 100, Carbon Dioxide 25.0, Anion Gap 10, BUN 12, Creatinine 0.79, Estim Creat Clear Calc 69.96, Est GFR (MDRD) Af Amer 94, Est GFR (MDRD) Non-Af 78, BUN/Creatinine Ratio 15.1, Glucose 141 H, Calcium 9.2 03/23/23 06:52: POC Glucose 124 H Radiology Impression KUB X-Ray 03/22/23 09:21 IMPRESSION: Nonspecific distended gaseous bowel loops and colon could be due to ileus. Electronically Signed: Karel Schulte MD at 10:39 EDT , Abdomen/Pelvis CT 03/22/23 12:08 IMPRESSION: 1. Mild thickening of the appendix with appendicolith. Early appendicitis cannot be entirely excluded. 2. Distended gaseous which could be due to colonic ileus. Electronically Signed: Karel Schulte MD at 14:39 EDT Reading Location ID and State: [facility] / [place] Tel , Service support , ADDENDUM: 03/22/23 1449 IMPRESSION: 1. Mild thickening of the appendix with appendicolith. Early appendicitis cannot be entirely excluded. 2. Distended gaseous which could be due to colonic ileus. N.B. : The above Results were Read Back by Karel Schulte MD to Dorian Medeiros MD, and understanding confirmed on 03/22/2023 14:42:25 (ET). Electronically Signed: Karel Schulte MD at 14:39 EDT ,
[2023-03-23] MEDS: Senna/Docusate Sodium 1 Tablet 2 TABLET PO (09:53)
[2023-03-23] MEDS: Enoxaparin 40 MG/0.4 ML Syringe SC (09:53)
[2023-03-23] MEDS: Polyethylene Glycol 3350 17 GM PACKET PO (09:53)
[2023-03-23] MEDS: Pantoprazole Sodium 20 MG Tablet PO (09:56)
[2023-03-23] MEDS: Losartan Potassium 50 MG Tablet PO (09:56)
[2023-03-23 12:07] LABS: Bedside Glucose 126 mg/dL (74-106)
--- NOTE | 2023-03-23 13:52 | PCM.PN.HOSP ---
Reason for Visit Reason for Visit: Diagnoses Disease of appendix, unspecified (03/22/23) Paralytic ileus (03/22/23) Subjective Subjective Patient seen at bedside, present. Patient laying comfortably in bed, conversing normally, in no acute distress. She has had several small bowel movements after having enemas done since admission. She still feels severely distended in her abdomen but does feel improved since admission. She denies any fevers or chills. Denies any pain to palpation. Denies any nausea or vomiting. She has been tolerating a diet. She is hoping to go home soon. No other acute concerns. Objective Data Objective Data Vital Signs: Vital Signs Temp Pulse Resp BP Pulse Ox O2 Del Method 98.7 F 70 18 118/78 95 Room Air 03/23/23 07:48 03/23/23 07:48 03/23/23 07:48 03/23/23 07:48 03/23/23 07:48 03/23/23 07:53 Oxygen Delivery Method Room Air Weight: 84.958 kg Body Mass Index (BMI) 29.3 Intake & Output: Intake and Output for Last 24 Hours 03/21/23 03/22/23 03/23/23 23:59 23:59 23:59 Intake Total 510 / 510 800 / 800 Balance 510 / 510 800 / 800 Lab / Micro Data Attestation: I reviewed the patient's lab results. 03/23/23 05:54 03/23/23 05:54 Labs: Laboratory Results - last 24 hr 03/22/23 13:52: POC Glucose 75 03/22/23 18:40: POC Glucose 81 03/22/23 20:56: POC Glucose 111 H 03/23/23 05:54: WBC 7.5, RBC 5.07, Hgb 15.1 H, Hct 47.3 H, MCV 93.3, MCH 29.8, MCHC 31.9 L, RDW Std Deviation 42.7, RDW Coeff of Lana 12.4, Plt Count 307, MPV 9.9, Immature Gran % (Auto) 0.300, Neut % (Auto) 41.2 L, Lymph % (Auto) 49.9 H, [place] % (Auto) 6.8, Eos % (Auto) 0.9, Baso % (Auto) 0.9, Absolute Neuts (auto) 3.1, Absolute Lymphs (auto) 3.74, Nucleated RBC % 0, Sodium 135 L, Potassium 4.4, Chloride 100, Carbon Dioxide 25.0, Anion Gap 10, BUN 12, Creatinine 0.79, Estim Creat Clear Calc 69.96, Est GFR (MDRD) Af Amer 94, Est GFR (MDRD) Non-Af 78, BUN/Creatinine Ratio 15.1, Glucose 141 H, Calcium 9.2 03/23/23 06:52: POC Glucose 124 H 03/23/23 11:42: POC Glucose 126 H Radiography Diagnostic Testing: Radiology Impression Abdomen/Pelvis CT 03/22/23 12:08 IMPRESSION: 1. Mild thickening of the appendix with appendicolith. Early appendicitis cannot be entirely excluded. 2. Distended gaseous which could be due to colonic ileus. Electronically Signed: Karel Schulte MD at 14:39 EDT , ADDENDUM: 03/22/23 1449 IMPRESSION: 1. Mild thickening of the appendix with appendicolith. Early appendicitis cannot be entirely excluded. 2. Distended gaseous which could be due to colonic ileus. N.B. : The above Results were Read Back by Karel Schulte MD to Dorian Medeiros MD, and understanding confirmed on 03/22/2023 14:42:25 (ET). Electronically Signed: Karel Schulte MD at 14:39 EDT , Physical Exam Const alert, oriented x3, no apparent distress, average body habitus, healthy appearing and well nourished Constitutional Narrative: Pleasant female, laying comfortably in bed, conversing normally, no acute distress. General Appearance: cooperative, comfortable, well kempt and well developed HEENT normocephalic, head/scalp atraumatic, hearing grossly normal bilaterally, nasal mucous membranes and turbinates normal and moist oral mucous membranes Eyes PERRL, EOMs intact bilaterally and conjunctivae normal Neck full ROM, no lymphadenopathy and supple Lymph Lymphatic: no lymphadenopathy noted Chest inspection of chest normal Resp normal respiratory effort, normal air movement, no use of accessory muscles and clear to auscultation bilaterally Cardio regular rate, regular rhythm, no murmurs and peripheral pulses 2+ throughout GI GI Narrative: Abdomen mildly distended but soft and nontender to palpation. Hypoactive bowel sounds. Back/Spine normal ROM Extremity normal to inspection, full ROM and no pedal edema Skin no rashes or lesions noted Psych mental status grossly normal Assessment & Plan Assessment/Plan (1) Paralytic ileus of large intestine: PLAN: Plan Patient is a 63-year-old female with history significant for noninsulin-dependent type 2 diabetes, anxiety/depression, hypertension and GERD who presented to [facility] on 03/22 with worsening abdominal pain and distention. 1. Colonic ileus -CT abdomen pelvis on admission with distended colon from the cecum to the rectum, fecal retention in the ascending colon, and mild thickening of the appendix with an appendicolith noted within the appendix. General surgery following, noted that patient does have a colonic ileus but he has low concern for appendicitis. Uncertain as to the etiology of the ileus. Can consider outpatient elective appendectomy. Patient has had no fevers and white blood cell count is normal, low concern for infection, no need for antibiotics. Patient has had subjective improvement in abdominal distention as she has had several bowel movements after enemas. Continue enemas and/or suppositories as needed. Continue p.o. Lasix and senna as needed. If patient continues to show improvement, will likely be okay for discharge home tomorrow. 2. DM2 -Home regimen of glimepiride and metformin. Sliding scale insulin while inpatient. 3. HTN ? Continue home NEHA inhibitor. 4. Anxiety/depression ? Continue home paroxetine. 5. GERD ? Continue home omeprazole. DVT prophylaxis: Lovenox CODE STATUS: Full code, verified Expected disposition: Home, 1 to 2 days Total clinical time spent by myself addressing the patient's medical issues, reviewing all of the data, and collaborating with patient's care team: 35 minutes. Charges/Coding Visit Charges Inpatient E&M: 04380 Subs Hosp L2
[2023-03-23 16:55] LABS: Bedside Glucose 104 mg/dL (74-106)
[2023-03-23 21:40] VITALS: BP 106/65; PULSE 57; RESP 18; TEMP 36.7; O2SAT 97
[2023-03-23 22:46] LABS: Bedside Glucose 131 mg/dL (74-106)
[2023-03-24 03:30] VITALS: BP 118/78; PULSE 59; RESP 18; TEMP 36.6; O2SAT 95
[2023-03-24 06:51] LABS: Bedside Glucose 141 mg/dL (74-106)
[2023-03-24 08:41] VITALS: BP 131/78; PULSE 63; RESP 18; TEMP 36.8; O2SAT 98
[2023-03-24] MEDS: Senna/Docusate Sodium 1 Tablet 2 TABLET PO (08:45)
[2023-03-24] MEDS: Enoxaparin 40 MG/0.4 ML Syringe SC (08:46)
[2023-03-24] MEDS: Polyethylene Glycol 3350 17 GM PACKET PO (08:49)
[2023-03-24] MEDS: Pantoprazole Sodium 20 MG Tablet PO (08:49)
[2023-03-24] MEDS: Losartan Potassium 50 MG Tablet PO (08:49)
--- NOTE | 2023-03-24 10:06 | DCINST_ITS ---
Discharge Instructions Diet Discharge Diet: No restrictions Activity Discharge Activity: Return to Normal Activity Weight Bearing Status: Full weight bearing Follow Up Care Please Follow Up With: Scott Mayer DO When: As needed Test Results: Test results from this visit will be discussed in further detail at your follow- up appointment, if applicable. Pending Tests Upon Discharge: none Discharge Plan Admission Admit Date/Time: 03/22/23 15:48 Primary Reason for Your Visit: ileus Attending Provider: Justice Rios Primary Care Provider: Scott Mayer Consulting Providers: Reymundo Fields; Akbar Patel Instructions Additional Instructions / Restrictions: Continue to take both Senna and Miralax daily for the next 4-5 days. You can then scale back to taking these only as needed. Use suppositories and enemas at home as needed. Continue all other home medications as prescribed. Discharge Orders/Prescriptions Prescriptions: New sennosides-docusate sodium [Stool Softener-Stimulant Laxat] 8.6-50 mg Tablet 2 tab PO DAILY 14 Days Qty: 28 0RF bisacodyl [Dulcolax (bisacodyl)] 10 mg suppository 10 mg [place] DAILY PRN (Reason: constipation) Qty: 12 0RF Fleet Enema 19-7 gram/118 mL enema 118 ml [place] DAILY PRN (Reason: constipation) Qty: 532 0RF Continued paroxetine HCl 20 MG tablet 20 mg PO DAILY Hold Instructions: MD Ordered Patient Comments: DEPRESSION metformin 750 mg tablet extended release 24 hr 750 mg PO DAILY Patient Comments: TAKE 1 TABLET BY MOUTH TWICE DAILY WITH FOOD omeprazole 20 mg tablet,delayed release (DR/EC) 20 mg PO DAILY glimepiride 4 mg tablet 4 mg PO DAILY telmisartan 40 mg tablet 40 mg PO DAILY Referrals / Follow Up: Scott Mayer DO [Primary Care Provider] - Disposition Disposition (needs filled in before D/C Order can be placed): Home, Self Care
--- NOTE | 2023-03-24 10:13 | DS.PCM_ITS ---
Providers Date of Admission: 03/22/23 Date of Discharge: 03/24/23 Primary Care Physician: Dr. Scott Mayer, Consultations 03/22/23 17:40 Consult: General Surgery Routine Consulting Provider: Reymundo Fields Reason for Consult: Appendicolith with possible early appendicitis EMERGENT Consult: No MD Notified: Yes Date Notified: 03/22/23 Time Notified: 15:54 Method of Notification: ED Physician Initiated Reason For Visit: ileus,constipation with nausea Diagnosis Discharge Diagnosis (1) Paralytic ileus of large intestine: Status: Acute Code(s): K56.0 - Paralytic ileus Medications at Discharge Home Medications paroxetine HCl 20 mg tablet 20 mg PO DAILY depression 08/16/16 glimepiride 4 mg tablet 4 mg PO DAILY diabetes 03/22/23 metformin 750 mg tablet,extended release 24 hr 750 mg PO DAILY diabetes 03/22/23 omeprazole 20 mg tablet,delayed release 20 mg PO DAILY heartburn 03/22/23 telmisartan 40 mg tablet 40 mg PO DAILY htn 03/22/23 bisacodyl 10 mg rectal suppository (Dulcolax (bisacodyl)) 10 mg NJ DAILY PRN constipation #12 ea 03/24/23 sennosides 8.6 mg-docusate sodium 50 mg tablet (Stool Softener-Stimulant Laxative) 2 tab PO DAILY 14 days #28 tabs 03/24/23 sodium phosphates 19 gram-7 gram/118 mL enema (Fleet Enema) 118 ml NJ DAILY PRN constipation #532 mL 03/24/23 Hospital Course Operations None Procedures - (CT abdomen pelvis, abdominal x-ray) Summary of Care Provided Minutes Spent on Discharge: 38 Hospital Course: Patient is a 63-year-old female with history significant for noninsulin- dependent type 2 diabetes, anxiety/depression, hypertension and GERD who presented to [facility] on 03/22 with worsening abdominal pain and distention. CT abdomen pelvis on admission showed distended colon from the cecum to the rectum, fecal retention in the ascending colon, and mild thickening of the appendix with an appendicolith noted within the appendix. General surgery evaluated the patient. They noted that the patient did have a colonic ileus but they had very low concern for appendicitis. The etiology of the ileus was uncertain. They recommended that the patient could consider elective outpatient appendectomy but there is no need for any inpatient invention. The patient was given multiple enemas on admission and had several large bowel movements. Patient's abdominal distention and discomfort were relieved fairly quickly. She was able to tolerate a regular diet prior to discharge. I instructed patient to use MiraLAX and senna scheduled for the next 4 to 5 days at home, along with as needed suppositories and enemas. Patient was discharged home with her in stable condition. Discharge diagnoses: Colonic ileus, improved Roc-gwoazjr-jmasjaabi type 2 diabetes Hypertension Anxiety/depression GERD Total clinical time spent by myself addressing patient's discharge needs: 38 minutes Physical Exam Const alert, oriented x3, no apparent distress, average body habitus, healthy appearing and well nourished Constitutional Narrative: Pleasant female, laying comfortably in bed, conversing normally, no acute distress. General Appearance: cooperative, comfortable, well kempt and well developed HEENT normocephalic, head/scalp atraumatic, hearing grossly normal bilaterally, nasal mucous membranes and turbinates normal and moist oral mucous membranes Eyes PERRL, EOMs intact bilaterally and conjunctivae normal Neck full ROM, no lymphadenopathy and supple Lymph Lymphatic: no lymphadenopathy noted Chest inspection of chest normal Resp normal respiratory effort, normal air movement, no use of accessory muscles and clear to auscultation bilaterally Cardio regular rate, regular rhythm, no murmurs and peripheral pulses 2+ throughout GI GI Narrative: Abdomen mildly distended but soft and nontender to palpation. Back/Spine normal ROM Extremity normal to inspection, full ROM and no pedal edema Skin no rashes or lesions noted Psych mental status grossly normal Weight / BMI Weight Weight: 84.958 kg Body Mass Index (BMI) 29.3 ABG / Lab / Microbiology Data 03/23/23 05:54 03/23/23 05:54 Laboratory: Laboratory Results - last 24 hr 03/23/23 11:42: POC Glucose 126 H 03/23/23 16:37: POC Glucose 104 03/23/23 21:44: POC Glucose 131 H 03/24/23 06:31: POC Glucose 141 H D/C Instructions Discharge Diet: No restrictions Weight Bearing Status: Full weight bearing Pending Tests Upon Discharge: none Please Follow Up With: Scott Mayer, DO When: As needed Meaningful Use Info Meaningful Use Diagnoses (Choose all that apply): None applicable Discharge Plan Admission Admit Date/Time: 03/22/23 15:48 Primary Reason for Your Visit: ileus Attending Provider: Justice Rios Primary Care Provider: Scott Mayer Consulting Providers: Reymundo Fields; Akbar Patel Instructions Additional Instructions / Restrictions: Continue to take both Senna and Miralax daily for the next 4-5 days. You can then scale back to taking these only as needed. Use suppositories and enemas at home as needed. Continue all other home medications as prescribed. Discharge Orders/Prescriptions Prescriptions: New sennosides-docusate sodium [Stool Softener-Stimulant Laxat] 8.6-50 mg Tablet 2 tab PO DAILY 14 Days Qty: 28 0RF bisacodyl [Dulcolax (bisacodyl)] 10 mg suppository 10 mg NJ DAILY PRN (Reason: constipation) Qty: 12 0RF Fleet Enema 19-7 gram/118 mL enema 118 ml NJ DAILY PRN (Reason: constipation) Qty: 532 0RF Continued paroxetine HCl 20 MG tablet 20 mg PO DAILY Hold Instructions: MD Ordered Patient Comments: DEPRESSION metformin 750 mg tablet extended release 24 hr 750 mg PO DAILY Patient Comments: TAKE 1 TABLET BY MOUTH TWICE DAILY WITH FOOD omeprazole 20 mg tablet,delayed release (DR/EC) 20 mg PO DAILY glimepiride 4 mg tablet 4 mg PO DAILY telmisartan 40 mg tablet 40 mg PO DAILY Referrals / Follow Up: Scott Mayer DO [Primary Care Provider] - Disposition Disposition (needs filled in before D/C Order can be placed): Home, Self Care Charges/Coding Visit Charges Inpatient E&M: 29613 Disch Hosp >30min
--- NOTE | 2023-03-24 10:17 | CASEMGMT ---
ELIANA TREVIÑO Assessment: Face to Face with pt for initial transition planning/care coordination assessment. RN HUDSON introduced self and role at [facility], pt voices understanding and consents to assessment. Pt is A/O x4 and answers all questions appropriately at this time. Pt up in room, dressed and ready for dc. Pt at bedside. Care providers, pharmacy, and demographics verified/updated. Admitting Dx: ileus, constipation with nausea PCP:Leyla Specialists: Pt denies Preferred Pharmacy: [facility] Insurance: Self pay Prescription Benefit: no LNOK: Jaycob Sears, Living Arrangements: Pt lives with in a single story home with 1 step to enter. 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 Transportation: Pt drives self and denies concerns with transportation. DME/HHC/SNF: Pt has a BGM with sufficient supplies and denies any further DME. Pt denies hx of HHC or SNF stays. Pt states no concerns with going home at time of dc. Pt states no further concerns/needs. CM to follow. Advised pt to ask CM if any further question/concerns/needs arise, voices understanding. Pt Goal: Home Plan: Home
--- NOTE | 2023-03-24 11:11 | PHA.DC.MC.R ---
Pharmacy [facility] Pharm[facility] Service has performed discharge medication reconciliation and counseling for this patient. 1. BISACODYL 10MG RC DAILY PRN CONSTIPATION 2. SENNA/DOCUSATE 2T PO DAILY 3. FLEET ENEMA 118ML RC DAILY PRN CONSTIPATION The patient's discharge medication list was reviewed for discrepancies and discrepancies were resolved. The patient was counseled on the following discharge medications and changes in medications for homegoing were reviewed. The Reason for Use, instructions for use, and potential side effects were reviewed for all new medications. The patient's questions regarding all of their medications were answered. The patient was able to verbally demonstrate an understanding of their discharge medications. Patient counseled by team sports sales associateFany. Medications at Discharge Home Medications paroxetine HCl 20 mg tablet 20 mg PO DAILY depression 08/16/16 glimepiride 4 mg tablet 4 mg PO DAILY diabetes 03/22/23 metformin 750 mg tablet,extended release 24 hr 750 mg PO DAILY diabetes 03/22/23 omeprazole 20 mg tablet,delayed release 20 mg PO DAILY heartburn 03/22/23 telmisartan 40 mg tablet 40 mg PO DAILY htn 03/22/23 bisacodyl 10 mg rectal suppository (Dulcolax (bisacodyl)) 10 mg NC DAILY PRN constipation #12 ea 03/24/23 sennosides 8.6 mg-docusate sodium 50 mg tablet (Stool Softener-Stimulant Laxative) 2 tab PO DAILY 14 days #28 tabs 03/24/23 sodium phosphates 19 gram-7 gram/118 mL enema (Fleet Enema) 118 ml NC DAILY PRN constipation #532 mL 03/24/23
== END 2023-03-24 10:53 | disposition home or self-care (01) | DRG 390 ==
LOC: ED 14:58 → MS3 16:01
PROVIDERS: Admitting Provider Family Medicine; Emergency Provider Emergency Medicine; PCP Family Medicine; Visit Provider Hospitalist
DX: K56.0 Paralytic ileus (principal); E11.9 Type 2 diabetes mellitus without complications; I10 Essential (primary) hypertension; F32.A Depression, unspecified; K21.9 Gastro-esophageal reflux disease without esophagitis; G47.33 Obstructive sleep apnea (adult) (pediatric); F41.9 Anxiety disorder, unspecified; K38.1 Appendicular concretions; Z79.84 Long term (current) use of oral hypoglycemic drugs; Z79.899 Other long term (current) drug therapy; Z90.49 Acquired absence of other specified parts of digestive tract
CPT/HCPCS: 36415; 74018; 74177; 80048; 80053; 82962; 83690; 85025; 99285; Q9967; A4216

== ENCOUNTER → 2023-04-09 | Outpatient (CLI) | payer SELFPAY ==
--- NOTE | 2023-04-09 12:30 | US_ITS ---
INDICATION: bloating EXAMINATION: Ultrasound US Pelvis Non OB Limited With Transvaginal Imaging TECHNIQUE: Transabdominal pelvic ultrasound was performed. Grayscale, spectral waveform, and color flow Doppler evaluation of the adnexa. COMPARISON: FINDINGS: UTERUS: 7.7 cm in length. Normal configuration. ENDOMETRIUM: Not thickened. 0.5 cm maximal thickness. Echogenic elongated focus within the endometrial canal measures 1.0 x 0.3 x 0.4 cm. Small echogenic focus in the cervical canal. OVARIES: Right ovary: 3.0 x 1.1 x 1.7 cm. Left ovary: 2.4 x 1.1 x 2.1 cm. The ovaries appear unremarkable. Vascular flow demonstrated. No findings to suggest ovarian torsion. FREE FLUID: None. Urinary bladder: Very distended on the transabdominal images with layering debris. Bladder volume 864 mL. US/Pelvic (Non ) IMPRESSION: Debris in the urinary bladder consistent with acute cystitis. Echogenic elongated focus in the endometrial canal possible polyp. Small echogenic focus in the cervix. Electronically Signed: Breana Hanley MD at 7:53 EDT ,
--- NOTE | 2023-04-09 12:30 | US_ITS ---
INDICATION: bloating EXAMINATION: Ultrasound US Pelvis Non OB Limited With Transvaginal Imaging TECHNIQUE: Transabdominal pelvic ultrasound was performed. Grayscale, spectral waveform, and color flow Doppler evaluation of the adnexa. COMPARISON: FINDINGS: UTERUS: 7.7 cm in length. Normal configuration. ENDOMETRIUM: Not thickened. 0.5 cm maximal thickness. Echogenic elongated focus within the endometrial canal measures 1.0 x 0.3 x 0.4 cm. Small echogenic focus in the cervical canal. OVARIES: Right ovary: 3.0 x 1.1 x 1.7 cm. Left ovary: 2.4 x 1.1 x 2.1 cm. The ovaries appear unremarkable. Vascular flow demonstrated. No findings to suggest ovarian torsion. FREE FLUID: None. Urinary bladder: Very distended on the transabdominal images with layering debris. Bladder volume 864 mL. US/Transvaginal Non- IMPRESSION: Debris in the urinary bladder consistent with acute cystitis. Echogenic elongated focus in the endometrial canal possible polyp. Small echogenic focus in the cervix. Electronically Signed: Breana Hanley MD at 7:53 EDT ,
== END | disposition home or self-care (01) ==
PROVIDERS: PCP Family Medicine; Referring Provider Nurse Practitioner Women's Health; Visit Provider Nurse Practitioner Women's Health
DX: R14.0 Abdominal distension (gaseous) (principal); R19.4 Change in bowel habit; R10.2 Pelvic and perineal pain
CPT/HCPCS: 76830; 76856

== ENCOUNTER → 2023-07-21 | Outpatient (CLI) | payer SELFPAY ==
--- NOTE | 2023-07-21 11:30 | US_ITS ---
STUDY: RENAL ULTRASOUND - COMPLETE REASON FOR EXAM: Female, 63 years old. UTI TECHNIQUE: Ultrasound evaluation of the kidneys was performed with real-time and static matias-scale imaging. COMPARISON: Pelvic ultrasound April 09, 2023. CT abdomen and pelvis March 22, 2023. FINDINGS: RIGHT KIDNEY: Normal location of the right kidney, which is normal in size. The right kidney measures 11.5 cm. There is a normal cortex of the right kidney. The renal cortex measures 1.6 cm. There is no right renal mass or cyst. There are no right renal calculi. There is no right hydronephrosis. DISTAL RIGHT URETER: There is non-visualization of the distal right ureter. There is no demonstrated right ureterovesical junction calculus. There is a visualized right ureteral jet. LEFT KIDNEY: Normal location of the left kidney, which is normal in size. The left kidney measures 12 cm. There is a normal cortex of the left kidney. The renal cortex measures 2.2 cm. Simple cyst measures 2.2 cm. There are no left renal calculi. There is no left hydronephrosis. DISTAL LEFT URETER: There is non-visualization of the distal left ureter. There is no demonstrated left ureterovesical junction calculus. There is a visualized left ureteral jet. I.V.C.: The IVC is patent. BLADDER: The distended urinary bladder has a volume of 440 ml.. There is a normal wall thickness of the distended urinary bladder. There is no demonstrated mass within the urinary bladder. There are no demonstrated bladder calculi. US/Kidney and Bladder IMPRESSION: Simple left renal cyst Electronically Signed: Mak Song MD at 17:40 EST ,
== END | disposition home or self-care (01) ==
PROVIDERS: PCP Family Medicine; Referring Provider Urology; Visit Provider Urology
DX: N39.0 Urinary tract infection, site not specified (principal)
CPT/HCPCS: 76770

== ENCOUNTER 2023-09-09 08:54 | Day surgery (SDC) | payer SELFPAY ==
[2023-09-03 09:34] LABS: Hematocrit 38.7 % (37-47); Hemoglobin 12.7 g/dL (12.0-15.0); Mean Corp Hgb Conc 32.8 g/dL (32-36); Mean Corpuscular Volume 91.3 fL (81-99); Mean Platelet Vol. 10.3 fl (6.2-12.0); Platelet Count 230 K/mm3 (150-450); RBC Distribution Width CV 12.6 % (11.6-14.6); RBC Distribution Width SD 41.5 fl (35.1-43.9); Red Blood Count 4.24 M/mm3 (4.2-5.4); White Blood Count 6.3 K/mm3 (4.4-11.0)
[2023-09-03 10:08] LABS: AST(SGOT) 10 U/L (15-37); Alanine Aminotransfer ALT/SGPT 22 U/L (13-56); Albumin, Serum 3.6 g/dL (3.2-5.0); Alkaline Phosphatase 70 U/L (45-117); Anion Gap -2 (5-15); BUN 10 mg/dL (7-18); BUN/Creat Ratio 13.5 RATIO (10-20); Chloride 106 mmol/L (98-107); Creatinine, Serum 0.74 mg/dL (0.55-1.02); EST Glomerular Filtration Rate 84 mL/min (>60); Est Glom Filt Rate - Afr Amer 102 mL/min (>60); Globulin 3.5 g/dL (2.2-4.2); Glucose 157 mg/dL (74-106); Potassium 4.3 mmol/L (3.5-5.1); Protein, Total 7.1 g/dL (6.4-8.2); Sodium Level 135 mmol/L (136-145)
[2023-09-09] VITALS (9 sets, daily range): BP systolic 110–178; BP diastolic 73–102; PULSE 52–62; RESP 16–18; TEMP 36.8–37.1; O2SAT 94–100; BMI 31.4
--- NOTE | 2023-09-09 07:44 | PCM.HP.BLA ---
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 Is patient in pain?: No Allergies adhesive tape Allergy (Verified 08/18/23 11:18) Itchinglatex Allergy (Verified 08/18/23 11:18) Itching Medications glimepiride 4 mg tablet 4 mg PO DAILY diabetes 03/22/23 [History Confirmed 06/03/23] metformin 750 mg tablet,extended release 24 hr 750 mg PO DAILY diabetes 03/22/23 [History Confirmed 06/03/23] omeprazole 20 mg tablet,delayed release 20 mg PO DAILY heartburn 03/22/23 [History Confirmed 06/03/23] telmisartan 40 mg tablet 40 mg PO DAILY htn 03/22/23 [History Confirmed 06/03/23] bisacodyl 10 mg rectal suppository (Dulcolax (bisacodyl)) 10 mg AL DAILY PRN constipation #12 ea 03/24/23 [Rx Confirmed 06/03/23] sennosides 8.6 mg-docusate sodium 50 mg tablet (Stool Softener-Stimulant Laxative) 2 tab PO DAILY 14 days #28 tabs 03/24/23 [Rx Confirmed 06/03/23] sodium phosphates 19 gram-7 gram/118 mL enema (Fleet Enema) 118 ml AL DAILY PRN constipation #532 mL 03/24/23 [Rx Confirmed 06/03/23] paroxetine HCl 10 mg tablet (Paxil) 10 mg PO DAILY 08/18/23 [History Confirmed 08/18/23] Is last menstrual period known: No Post menopausal: Yes Patient : No : No [facility] Medical History (Updated 08/18/23 @ 11:[address] Sidra Silva MD) Abnormal EKG Chest pain Diabetes Essential hypertension GERD (gastroesophageal reflux disease) History of DVT (deep vein thrombosis) (07/07/13) Hypersomnolence TEX (obstructive sleep apnea) Snoring Surgical History History of cholecystectomy history of cystoscopy and vaginal sling (08/30/16) History of right knee joint replacement (05/11/19) S/P robot-assisted surgical procedure Social History household members: spouse number of children: 4 current occupational status: employed current occupation: [employer] Smoking Status: Never smoker alcohol intake: never substance use type: does not use seatbelt use: always do you feel safe at home: Yes additional social history: - Jaycob 1 adopted son- [facility] D&C Details: LUH ALBARRAN is a 63 year old who presents for preop appointment had endometrial lesion- no bleeding or abnormal discharge. 0.5 cm maximal thickness. Echogenic elongated focus within the endometrial canal measures 1.0 x 0.3 x 0.4 cm. Small echogenic focus in the cervical canal. Female Reproductive History Menopausal Symptoms: No night sweats History 4 Elective abortions Hx Para 4 Spontaneous abortions Hx # Term Pregnancies Ectopic pregnancies Hx # Pregnancies Multiple births # of living children 4 Past Pregnancies Del. Date Name GA/Weeks Outcome Route Bth Weight Infant Gen Labor Lgth Anesthesia Del Locatn Provider FOB Unknown Hemant 1980 Unknown Elizabeth 1983 Unknown Breana 1984 Unknown Margaret 1989 ROS Const Constitutional: Denies fatigue, night sweats, weight gain or weight loss ENT ENT: Reports system reviewed and no additional complaints, except as documented Cardio Card: Denies chest pain Resp Resp: Denies cough or dyspnea GI GI: Reports as per HPI; Denies abdominal pain, constipation, nausea or vomiting : Denies nipple discharge, urinary frequency, urinary incontinence, urinary hesitancy, urinary urgency, vaginal discharge, vaginal dryness, vaginal odor or vaginal pruritus Musc Musc: Denies arthralgias, back pain or muscle weakness Skin Skin/Breast: Denies alopecia, change in hair, dry skin, breast mass, breast pain, breast skin changes or nipple discharge Neuro Neuro: Reports system reviewed and no additional complaints, except as documented Psych Psych: Reports system reviewed and no additional complaints, except as documented Endo Endo: Denies cold intolerance, excessive sweating, heat intolerance or polydipsia Johnie/Lymph Hematologic/Lymphatic: Denies easy bleeding, Denies easy bruising and Denies lymphadenopathy Exam Const General: cooperative, healthy appearing, comfortable and no acute distress Orientation: alert [facility] Head: normal to inspection and normocephalic Ears: hearing grossly normal bilaterally and external ears normal Nose: external nose normal and nares normal Face and sinus: normal facial exam Neck Neck: normal visual inspection and no lymphadenopathy Thyroid: thyroid normal Chest Chest palpation & inspection: normal inspection of the chest Resp Effort & Inspection: normal respiratory effort Auscultation: clear to auscultation bilaterally Cardio Rate: regular rate Rhythm: regular rhythm Heart Sounds: S1 normal and S2 normal GI Inspection: normal to inspection and non-distended Palpation: soft and no hepatosplenomegaly Musc Other: gross motor intact no deficits, full bilateral strength Skin General: no rashes or lesions noted Neuro General: patient alert, patient awake, moves all extremities and no focal motor deficits Motor: muscle tone normal throughout Extrem General: normal to inspection and no pedal edema Psych Appearance: grossly normal Mental Status: mental status grossly normal Affect: normal affect Speech and Movement: speech and movement normal Coding Level of Care Code No Charge Diagnoses History of DVT (deep vein thrombosis) Z86.718 Endometrial polyp N84.0 Assessment and Plan Assessment and Plan (1) History of DVT (deep vein thrombosis): Status: Resolved Comment: Dx by venous duplex: left tibial peroneal trunk. recommend lovenox prophylactic day of surgery and patient declined treatment 1 week postop (2) Endometrial polyp: Status: Acute Comment: plan d and c hysteroscopy symphion polypectomy in august Plan After discussing the patient's diagnosis and treatment plan options, patient wishes to proceed with surgical management. I have discussed with the patient the risks, benefits, and alternatives of the procedure which include but are not limited to risks of anesthesia, bleeding, infection, possible damage to bowel, bladder, or surrounding vasculature which could lead to additional surgery to evaluate any complications. Patient agrees to procedure and wishes to proceed. ACOG/uptodate references given for additional information regarding procedure. UPDATE- I have seen the patient and performed any clinically relevant updates to the history and physical exam. Sidra Silva MD
--- OUTSIDE RECORDS SUMMARY | 2023-09-09 09:15 | XMS RPT_ITS | CCD ---
Author Name Unknown Address [address] [place] [address] Organization [facility] Care Team Providers Care Industrial Truck Mechanic Name Role Phone BRO, ROHAN T Primary Care Unavailable BRO, ROHAN T Attending Unavailable BRO, ROHAN T Admitting Unavailable LORETTA MITCHELL CNP Consulting Unavailable PROVIDER, UNKNOWN Consulting Unavailable PROVIDER, UNKNOWN Consulting Unavailable BRO, ROHAN T Primary Care Unavailable BRO, ROHAN T Attending Unavailable BRO, ROHAN T Admitting Unavailable LORETTA MITCHELL CNP Consulting Unavailable PROVIDER, UNKNOWN Consulting Unavailable PROVIDER, UNKNOWN Consulting Unavailable BRO, ROHAN T Primary Care Unavailable BRO, ROHAN T Attending Unavailable BRO, ROHAN T Admitting Unavailable Allergies Allergy Classification Reported Allergen(s) Allergy Type Date of Onset Reaction(s) Facility (1 source) Latex; Translations: [LATEX] Propensity to adverse reactions (disorder) [facility] Repository Problems Problem Classification Problem Date Documented Da te Episodic/Chronic Other gastrointestinal disorders (3 sources) Diarrhea, unspecified; Translations: [Diarrhea, unspecified] Onset: 03-20-2021 Episodic Other screening for suspected conditions (not mental disorders or infectious disease) (3 sources) Encounter for screening for malignant neoplasm of colon; Translations: [Encounter for screening for malignant neoplasm of colon] Onset: 04-12-2021 Episodic Results Test Name Value Interpretation Reference Range Facil ity Encounters Encounter Date Encounter Type Care Provider Facility Start: 04-18-2021 End: 04-18-[address] [facility] Start: 04-12-2021 End: 04-12-[address] [facility] Start: 03-20-2021 End: 03-20-[address] [facility] Summary Purpose Family History No Family History Records FoundNo Family History Records FoundNo Family History Records FoundNo Family History Records FoundNo Family History Records Found Advance Directives No Advanced Directives Records FoundNo Advanced Directives Records FoundNo Advanced Directives Records FoundNo Advanced Directives Records FoundNo Advanced Directives Records Found Procedure Findings Note HNO ID: [id number] Author: Yin Tovar Service: ? Author Type: Nurse Executive Staff Assistant Type: Anesthesia Procedure Notes Filed: 06/28/2020 12:05 PM Note Text: ANESTHESIOLOGY PROCEDURE NOTE Airway General Information Procedure Start Time/Medication Administration: 06/28/2020 11:55 AM Patient location during procedure: OR Timeout Performed Pre-procedure: timeout performed Consent Obtained: Yes Patient identity confirmed: arm band and patient Staffing COBBLER UPPER: Sapna Tovar Performed by: COBBLER UPPER Indications and Patient Condition Preoxygenated: yes Patient position: sniffing Manual In-Line Stabilization: No Difficult Mask: No Indications for airway management: anesthesia anesthesia circuit Method: asleep Cricoid Pressure: No Final Airway Details Final airway type: endotracheal airway Cuffed: yes Successful intubation technique: direct laryngoscopy Blade: Alejandro Blade size: #3 Measured from: gums Measurement (cm): 22 Placement verified by: chest auscultation and capnometry Sadiq (more content not included)... Additional Source Comments INFORMATION SOURCE (unrecogn ized section and content) DATE CREATED AUTHOR AUTHOR'S ORGANIZ ATION 06/29/2020 [facility] DATE CREATED AUTHOR AUTHOR'S ORGANIZ ATION 03/18/2021 [facility] DATE CREATED AUTHOR AUTHOR'S ORGANIZ ATION 03/30/2021 [facility] DATE CREATED AUTHOR AUTHOR'S ORGANIZ ATION 04/20/2021 [facility] FOR RECORDS PERTAINING TO PATIENTS WHO ARE OR HAVE BEEN ENROLLED IN A CHEMICAL DEPENDENCY/SUBSTANCEABUSE PROGRAM, SOME INFORMATION MAY BE OMITTED. This clinical summary was aggregated from multiple sources. Caution should be exercised in using it in the provision of clinical care. This summary normalizes information from multiple sources, and as a consequence, information in this document may materially change the coding, format and clinical context of patient data. In addition, data may be omitted in some cases. CLINICAL DECISIONS SHOULD BE BASED ON THE PRIMARY CLINICAL RECORDS. [facility]. provides no warranty or guarantee of the accuracy or completeness of information in this document.
[2023-09-09] MEDS: Lactated Ringers 1,000 ML 15 ML IV (09:40)
[2023-09-09] MEDS: Enoxaparin 40 MG/0.4 ML Syringe SC (09:42)
--- NOTE | 2023-09-09 10:30 | EMB_PTH ---
PATHOLOGY RESULTS PATIENT: LUH ALBARRAN LOC: [facility] – [place] U#:[id number] AGE/SX: 63/F ROOM: RE09/09/[address]: Dr. Sidra Silva MD : 1960 BED: DIS: 09/09/2023 SPEC #: [id number] RECD: 09/09/23 12:04 STATUS: ANURADHA HAYNES #: [id number] ISMAEL: 09/09/23 10:[address]: Sidra Silva DEPT: SURGICAL PATHOLOGY RECD BY: Kim Lovett ENTERED: 09/09/23 12:29 SP TYPE: ENDOM BX/C PAOLA DR: Dr. Scott Mayer DO Tissues: Endometrium, NOS Procedures: Surgery Specimen Level IV HEADER OPERATION: Hysteroscopy, D & C Symphion, polypectomy PRE-OP DIAGNOSIS: Endometrial polyp TISSUE SUBMITTED: Endometrial curettings MICROSCOPIC DIAGNOSIS Endometrial curettings: Polypoid fragments of endometrial tissue with simple cystic hyperplasia without atypia may represent fragments of polyp. Fragments of myometrium. See comment. HERNESTO:gurdeep 09/10/2023 COMMENT The specimen predominantly consists of fragments of myometrium. Case has been reviewed in consultation with Dr. Sma who concurs with the above diagnosis. IDC:AM MICROSCOPIC DESCRIPTION Slides are reviewed. GROSS DESCRIPTION Received in fixative is one container labeled with the patient's name and designated endometrial curettings. The specimen consists of multiple irregular fragments of caceres, indurated tissue that in aggregate measure 5.0 x 3.0 x 0.2 cm. The specimen is totally submitted in two cassettes. / HERNESTO:gurdeep 09/09/2023 TC:5 CPT: 82838
[2023-09-09] MEDS: Lidocaine 1% (30 ml sdv) 30 ML Vial (11:06)
--- NOTE | 2023-09-09 12:14 | PCM.OPRPT ---
Problems Associated Problem List Diagnoses (1) Endometrial polyp: Report of Operation Date of Procedure: 09/09/23 Pre-Operative Diagnosis: see problem list Post-Operative Diagnosis: same Surgery/Procedure Performed:: D&C hysteroscopy polypectomy using symphion Description of Surgical Findings:: polyp Surgeon: Sidra Silva performance improvement consultant: None Type of Anesthesia: Local MAC Special Medications: none Specimen's removed: EMC, polyp Drains: none Estimated Blood Loss (mL): 50 Fluids Replaced: crystalloid Description of Procedure: deficit 300 Patient was prepped and draped in a normal sterile fashion under MAC anesthesia. A weighted speculum was placed in the vagina and the anterior lip of the cervix was grasped with a single-tooth tenaculum. A paracervical block was placed with 1% lidocaine. Cervix was progressively dilated to allow passage of a 5 mm hysteroscope. The lining was fully visualized and noted to have polyp in the lining . Uterine sounded to 8 cm. Using the symphion device, the polyp was progressively removed without complications. Direct visual curettage was performed using the device , and all specimens were sent to pathology. All instruments were removed from the vagina and excellent hemostasis was noted. Patient was awoken and taken to recovery in stable condition. Grafts/Implants Used: none Procedure Start Time: 10:58 Procedure Stop Time: 11:03 Complications none Admit VTE Documentation VTE Present on Admission: No VTE Mechan Device Prophylaxis: SCD's Multi Select Codes Urinary/Genital Urinary/Genital CPT Codes: 61175 Hysteroscopy,EMC, Polypectomy
--- NOTE | 2023-09-09 12:17 | DCINST_ITS ---
Discharge Instructions Diet Discharge Diet: No restrictions Activity Discharge Activity: Return to Normal Activity, May Shower and May Take a Tub Bath (after 1 week) May resume sexual activity in: 1-2 weeks Weight Bearing Status: Weight bearing as tolerated Lifting Restrictions: none Dressing / Incision Call your doctor if you observe: Fever of 101 or Higher, Using more than 1 pad per hour, Shortness of breath and Uncontrolled pain Follow Up Care Please Follow Up With: Sidra Silva MD When: Call [phone] to schedule appointment. Test Results: Test results from this visit will be discussed in further detail at your follow- up appointment, if applicable. Discharge Plan Admission Attending Provider: Sidra Silva Primary Care Provider: Scott Mayer Discharge Orders/Prescriptions Prescriptions: No Action paroxetine HCl [Paxil] 10 mg tablet 10 mg PO DAILY sennosides-docusate sodium [Stool Softener-Stimulant Laxat] 8.6-50 mg Tablet 2 tab PO DAILY PRN (Reason: constipation) estradioL 1 g vaginal .3x week metformin 750 mg tablet extended release 24 hr 750 mg PO DAILY Patient Comments: TAKE 1 TABLET BY MOUTH TWICE DAILY WITH FOOD glimepiride 4 mg tablet 4 mg PO DAILY telmisartan 40 mg tablet 40 mg PO DAILY Referrals / Follow Up: Scott Mayer DO [Primary Care Provider] - Disposition Disposition (needs filled in before D/C Order can be placed): Home, Self Care
[2023-09-09] MEDS: Oxycodone/Apap 5/325 Tablet PO (12:50)
== END 2023-09-09 13:20 | disposition home or self-care (01) ==
LOC: SDC 09:00 → AC 09:01
PROVIDERS: PCP Family Medicine; Referring Provider Obstetrics & Gynecology; Visit Provider Obstetrics & Gynecology
PROC: 0UB98ZZ Excision of Uterus, Via Natural or Artificial Opening Endoscopic (ICD-10-PCS; CPT 58558; principal; 2023-09-09 10:15)
DX: N85.01 Benign endometrial hyperplasia (principal); E11.9 Type 2 diabetes mellitus without complications; I10 Essential (primary) hypertension; Z79.84 Long term (current) use of oral hypoglycemic drugs; Z86.718 Personal history of other venous thrombosis and embolism; Z79.899 Other long term (current) drug therapy
CPT/HCPCS: 58558; 36415; 80053; 85027; 86850; 86900; 86901; 88305; 93005; J7120; J2405

== ENCOUNTER → 2023-10-28 | Outpatient (CLI) | payer SELFPAY | END | disposition home or self-care (01) | LOC: LABSPEC 14:46 | PROVIDERS: PCP Family Medicine; Referring Provider Advanced Practice Midwife; Visit Provider Advanced Practice Midwife | DX: N89.8 Other specified noninflammatory disorders of vagina (principal) | CPT/HCPCS: 87070; 87205 ==

== ENCOUNTER → 2023-12-17 | Outpatient (CLI) | payer MEDICARE, SELFPAY ==
[2023-12-17 12:29] LABS: Hematocrit 40.1 % (37-47); Hemoglobin 12.9 g/dL (12.0-15.0); Mean Corp Hgb Conc 32.2 g/dL (32-36); Mean Corpuscular Hgb 29.3 pg (27.0-32.0); Mean Corpuscular Volume 90.9 fL (81-99); Mean Platelet Vol. 10.5 fl (6.2-12.0); Platelet Count 231 K/mm3 (150-450); RBC Distribution Width CV 12.6 % (11.6-14.6); Red Blood Count 4.41 M/mm3 (4.2-5.4); White Blood Count 6.9 K/mm3 (4.4-11.0)
[2023-12-17 12:32] LABS: Anion Gap 4 (5-15); BUN 14 mg/dL (7-18); BUN/Creat Ratio 14.3 RATIO (10-20); Calcium,Total 9.4 mg/dL (8.5-10.1); Chloride 103 mmol/L (98-107); Creatinine, Serum 0.98 mg/dL (0.55-1.02); EST Glomerular Filtration Rate 61 mL/min (>60); Est Glom Filt Rate - Afr Amer 73 mL/min (>60); Glucose 116 mg/dL (74-106); Potassium 4.1 mmol/L (3.5-5.1); Sodium Level 138 mmol/L (136-145)
== END | disposition home or self-care (01) ==
PROVIDERS: PCP Family Medicine; Referring Provider Urology; Visit Provider Urology
DX: N32.9 Bladder disorder, unspecified (principal)
CPT/HCPCS: 36415; 80048; 85027

== ENCOUNTER 2024-01-08 05:56 | Day surgery (SDC) | payer MEDICARE, SELFPAY ==
[2024-01-01 17:18] LABS: Hemoglobin A1c 6.8 % (3.8-5.6)
[2024-01-08] VITALS (7 sets, daily range): BP systolic 114–141; BP diastolic 75–108; PULSE 55–75; RESP 16; TEMP 36.1–36.5; O2SAT 90–100; BMI 32.7
[2024-01-08] MEDS: Lactated Ringers 1,000 ML 15 ML IV (06:28)
[2024-01-08 06:48] LABS: Bedside Glucose 184 mg/dL (74-106)
[2024-01-08] MEDS: Cefazolin 2 GM in 0.9% Normal Saline (100mL Bag) 100 ML IV (07:29)
--- NOTE | 2024-01-08 07:30 | BLA_PTH ---
PATIENT: LUH ALBARRAN LOC: [facility] – [place] U#:[id number] AGE/SX: 63/F ROOM: RE01/08/[address]: Dr. Greta Hall MD : 1960 BED: DIS: 01/08/2024 SPEC #: [id number] RECD: 01/08/24 10:24 STATUS: ANURADHA RELore #: [id number] ISMAEL: 01/08/24 07:[address]: Greta Hall DEPT: SURGICAL PATHOLOGY RECD BY: Kim Lovett ENTERED: 01/08/24 12:15 SP TYPE: BLADDER BX OTHR DR: MD Dr. Scott Morejon DO Tissues: Urinary bladder, NOS Procedures: Surgery Specimen Level IV HEADER OPERATION: Cysto with bladder biopsy PRE-OP DIAGNOSIS: Endometria hyperplasia without atypia TISSUE SUBMITTED: Bladder biopsy MICROSCOPIC DIAGNOSIS Urinary bladder, biopsy: Chronic follicular cystitis. Focal dystrophic microcalcifications. AM/ 01/09/2024 MICROSCOPIC DESCRIPTION Slides are reviewed. GROSS DESCRIPTION Received in fixative is one container labeled with the patient's name and designated Bladder biopsy. The specimen consists of two irregular fragments of light caceres soft tissue that in aggregate measure 0.3 x 0.3 x 0.1 cm. The specimen is totally submitted in one cassette. / 01/08/2024 TC:3 CPT:52294
--- NOTE | 2024-01-08 08:03 | EX.PCM.DISCH ---
Discharge Instructions Diet Discharge Diet: No restrictions Activity Discharge Activity: Return to Normal Activity Dressing / Incision Call your doctor if you observe: Fever of 101 or Higher, Inability to urinate and Inability to have a bowel movement Follow Up Care Please Follow Up With: Greta Hall MD When: In the office next week. Test Results: Test results from this visit will be discussed in further detail at your follow-up appointment, if applicable. Discharge Plan Admission Attending Provider: Greta Hall Primary Care Provider: Scott Mayer Consulting Providers: Jaspreet Saunders Instructions Print Language: [place] Discharge Orders/Prescriptions Prescriptions: New oxycodone-acetaminophen [Percocet] 5-325 mg tablet 1 tab PO Q8H PRN (Reason: pain) 1 Days Qty: 3 0RF phenazopyridine [Pyridium] 200 mg tablet 200 mg PO TID PRN PRN (Reason: Bladder Spasms) 7 Days Qty: 30 0RF Continued paroxetine HCl [Paxil] 10 mg tablet 20 mg PO DAILY sennosides-docusate sodium [Stool Softener-Stimulant Laxat] 8.6-50 mg Tablet 2 tab PO DAILY PRN (Reason: constipation) metformin 750 mg tablet extended release 24 hr 750 mg PO DAILY glimepiride 4 mg tablet 4 mg PO DAILY telmisartan 40 mg tablet 40 mg PO DAILY d-mannose 500 mg capsule 1,000 mg PO DAILY C Complex 1,000 mg tablet extended release 2,000 mg PO DAILY cholecalciferol (vitamin D3) [Vitamin D3] 25 mcg (1,000 unit) capsule 25 mcg PO DAILY [place]-3 350 mg-235 mg- 90 mg-597 mg capsule,delayed release(DR/EC) 1 cap PO DAILY Lror-Xfaj-Saws(vit A,C-biotin) 2,500 unit-100 mg-2,500 mcg capsule 1 cap PO DAILY pyridoxine (vitamin B6) [Vitamin B-6] 25 mg tablet 25 mg PO DAILY Referrals / Follow Up: Scott Mayer DO [Primary Care Provider] - Disposition Disposition (needs filled in before D/C Order can be placed): Home, Self Care
--- NOTE | 2024-01-08 08:08 | PCM.OPRPT ---
Report of Operation Date of Procedure: 01/08/24 Pre-Operative Diagnosis: Bladder lesion Post-Operative Diagnosis: Same Surgery/Procedure Performed:: Cystoscopy with bladder biopsy and fulguration Surgeon: Greta Hall Type of Anesthesia: MAC Specimen's removed: Bladder biopsy Description of Procedure: The patient is a 63-year-old female who was evaluated with a cystoscopy in the office and noted to have an erythematous trigone and some other areas of redness sporadically throughout the bladder wall. She underwent a repeat cystoscopy 4 weeks later with the same findings. She now presents for biopsy under anesthesia. Informed consent was obtained. The patient was taken to the operating room and placed on the operating room table. Anesthesia monitored the head, neck, airway, IV access and vital signs throughout the case. Once anesthesia was appropriately administered, the patient was placed into dorsolithotomy position and was prepped and draped in usual sterile fashion. The cystoscope was inserted through the urethra under direct visualization into the urinary bladder. The same findings of erythema and cystitis cystica were identified. Flexible biopsy forceps were used to biopsy an area of the posterior bladder wall and the area of the trigone. These 2 spots were fulgurated for hemostatic control and tissue treatment. The patient's bladder was then emptied and the cystoscope was removed. She was awakened and taken to the recovery room in good condition. There were no complications during this procedure. Grafts/Implants Used: None Complications None Admit VTE Documentation VTE Present on Admission: Yes VTE Mechan Device Prophylaxis: SCD's VTE Pharm Prophylaxis ordered?: No Reason prophylaxis not ordered:: Treatment Not Indicated
== END 2024-01-08 08:49 | disposition home or self-care (01) ==
LOC: SDC 05:59 → AC 05:59
PROVIDERS: Anesthesiology; PCP Family Medicine; Referring Provider Urology; Visit Provider Urology
PROC: 0TBB8ZX Excision of Bladder, Via Natural or Artificial Opening Endoscopic, Diagnostic (ICD-10-PCS; CPT 52234; principal; 2024-01-08 07:20)
DX: N30.30 Trigonitis without hematuria (principal); E11.9 Type 2 diabetes mellitus without complications; I10 Essential (primary) hypertension; Z79.84 Long term (current) use of oral hypoglycemic drugs; Z79.899 Other long term (current) drug therapy; N30.80 Other cystitis without hematuria; N32.89 Other specified disorders of bladder; K21.9 Gastro-esophageal reflux disease without esophagitis
CPT/HCPCS: 52234; 00912; J7120; 36415; 82962; 83036; 88305; J2405

== ENCOUNTER 2024-05-13 12:08 | Outpatient (CLI) | payer MEDICARE, SELFPAY ==
[2024-05-13 15:25] LABS: ALB/GLOB Ratio 1.1 RATIO (0.9-2.4); AST(SGOT) 12 U/L (15-37); Alanine Aminotransfer ALT/SGPT 23 U/L (13-56); Albumin, Serum 3.8 g/dL (3.2-5.0); Alkaline Phosphatase 75 U/L (45-117); Anion Gap 7 (5-15); BUN 11 mg/dL (7-18); BUN/Creat Ratio 12.1 RATIO (10-20); Calcium,Total 9.5 mg/dL (8.5-10.1); Chloride 105 mmol/L (98-107); Creatinine, Serum 0.91 mg/dL (0.55-1.02); EST Glomerular Filtration Rate 66 mL/min (>60); Est Glom Filt Rate - Afr Amer 80 mL/min (>60); Globulin 3.6 g/dL (2.2-4.2); Glucose 113 mg/dL (74-106); Potassium 4.2 mmol/L (3.5-5.1); Protein, Total 7.4 g/dL (6.4-8.2); Sodium Level 139 mmol/L (136-145)
[2024-05-16 12:07] LABS: Vitamin D 1,25-Dihydroxy 76.3 pg/mL (24.8-81.5)
== END 2024-05-13 23:59 | disposition home or self-care (01) ==
LOC: MFPLAB 12:09
PROVIDERS: PCP Family Medicine; Referring Provider Family Medicine; Visit Provider Family Medicine
DX: B35.1 Tinea unguium (principal)
CPT/HCPCS: 36415; 80053; 82652; 84443

== ENCOUNTER → 2024-08-24 | Outpatient (CLI) | payer MEDICARE, SELFPAY ==
[2024-08-24 13:00] LABS: Vitamin D,25 Hydroxy 49.9 ng/mL
[2024-08-24 13:03] LABS: ALB/GLOB Ratio 1.1 RATIO (0.9-2.4); AST(SGOT) 8 U/L (15-37); Alanine Aminotransfer ALT/SGPT 24 U/L (13-56); Albumin, Serum 3.8 g/dL (3.2-5.0); Alkaline Phosphatase 83 U/L (45-117); Anion Gap 3 (5-15); BUN 8 mg/dL (7-18); BUN/Creat Ratio 11.2 RATIO (10-20); Calcium,Total 9.4 mg/dL (8.5-10.1); Chloride 102 mmol/L (98-107); Creatinine, Serum 0.71 mg/dL (0.55-1.02); EST Glomerular Filtration Rate 87 mL/min (>60); Est Glom Filt Rate - Afr Amer 105 mL/min (>60); Globulin 3.5 g/dL (2.2-4.2); Glucose 203 mg/dL (74-106); Potassium 4.1 mmol/L (3.5-5.1); Protein, Total 7.3 g/dL (6.4-8.2); Sodium Level 135 mmol/L (136-145)
== END | disposition home or self-care (01) ==
LOC: MTLAB 10:43
PROVIDERS: PCP Family Medicine; Referring Provider Family Medicine; Visit Provider Family Medicine
DX: B35.1 Tinea unguium (principal)
CPT/HCPCS: 36415; 80053; 82306

== ENCOUNTER 2024-09-15 14:01 | Outpatient (CLI) | payer MEDICARE, SELFPAY ==
--- NOTE | 2024-09-15 10:20 | EMB_PTH ---
PATIENT: LUH ALBARRAN LOC: [facility] U#:[id number] AGE/SX: 64/F ROOM: RE09/15/[address]: Dr. Sidra Silva MD : 1960 BED: DIS: 09/15/2024 SPEC #: [id number] RECD: 09/16/24 07:33 STATUS: ANURADHA RELore #: [id number] ISMAEL: 09/15/24 10:[address]: Sidra Silva DEPT: SURGICAL PATHOLOGY RECD BY: Kim Lovett ENTERED: 09/16/24 07:33 SP TYPE: ENDOM BX/C PAOLA DR: Binh Forte MD Tissues: Endometrium, NOS Procedures: Surgery Specimen Level IV HEADER OPERATION: Endometrial biopsy PRE-OP DIAGNOSIS: Endometrial hyperplasia, unspecified TISSUE SUBMITTED: Endometrial tissue MICROSCOPIC DIAGNOSIS Endometrial biopsy: Consistent with exogenous hormone effect. Negative for hyperplasia. Fragments of benign ectocervical epithelium. See comment. SJ.mr 09/17/2024 COMMENT Please make reference to previous specimen [id number] endometrial curettings with diagnosis of polypoid fragments of endometrial tissue with simple cystic hyperplasia without atypia, may represent fragments of polyp. Clinical correlation and appropriate follow up are necessary. MICROSCOPIC DESCRIPTION Slides are reviewed. GROSS DESCRIPTION Received is one container labeled with the patient's name and not further designated. The specimen consists of multiple irregular fragments of hemorrhagic mucoid tissue that in aggregate measure 2.5 x 0.3 x 0.1 cm. The specimen is totally submitted in one cassette. 09/16/2024 TC:5 CPT:15062
== END 2024-09-15 23:59 | disposition home or self-care (01) ==
LOC: LABSPEC 14:02
PROVIDERS: PCP Family Medicine; Referring Provider Obstetrics & Gynecology; Visit Provider Obstetrics & Gynecology
DX: N95.0 Postmenopausal bleeding (principal)
CPT/HCPCS: 88305

== ENCOUNTER → 2025-03-24 | Outpatient (CLI) | payer MEDICARE, SELFPAY ==
--- NOTE | 2025-03-24 11:20 | EMB_PTH ---
PATIENT: LUH ALBARRAN LOC: [facility] U#:[id number] AGE/SX: 65/F ROOM: RE03/24/[address]: Dr. Sidra Silva MD : 1960 BED: DIS: 03/24/2025 SPEC #: [id number] RECD: 03/24/25 12:27 STATUS: ANURADHA RELore #: [id number] ISMAEL: 03/24/25 11:[address]: Sidra Silva DEPT: SURGICAL PATHOLOGY RECD BY: Paul Woo ENTERED: 03/24/25 13:45 SP TYPE: ENDOM BX/C OTHR DR: Binh Forte MD Tissues: A - Endometrium, NOS Procedures: Surgery Specimen Level IV HEADER OPERATION: Endometrial biopsy PRE-OP DIAGNOSIS: Endometrial hyperplasia without atypia TISSUE SUBMITTED: A- Endometrial tissue MICROSCOPIC DIAGNOSIS A. Endometrium, biopsy: - Scant proliferative-type endometrium - see note. - Scant benign endocervical epithelium. Note: A limited amount of endometrial epithelium is present essentially without stroma, which may not be a customer engagement representative sampling. Clinical correlation is necessary to assess the adequacy of the biopsy. MICROSCOPIC DESCRIPTION Slides are reviewed. GROSS DESCRIPTION A. Received in formalin labeled with the patient's name and date of are minute flecks of possible, free-floating tissue. The specimen is entirely submitted in 1 cassette, for cellblock preparation. AL 03/24/2025 CPT:31004
== END | disposition home or self-care (01) ==
LOC: LABSPEC 11:53
PROVIDERS: PCP Family Medicine; Referring Provider Obstetrics & Gynecology; Visit Provider Obstetrics & Gynecology
DX: N85.00 Endometrial hyperplasia, unspecified (principal)
CPT/HCPCS: 88305

== ENCOUNTER → 2025-04-28 | Outpatient (CLI) | payer MEDICARE, SELFPAY ==
--- NOTE | 2025-04-28 11:45 | US_ITS ---
PROCEDURE: BREAST LIMITED UNILATERAL 04/28/2025 REASON FOR EXAM: F, Age 65 y/o , ABN FINDINGS COMPARISON: Prior mammogram dated March 31, 2025.. TECHNIQUE: Procedure Code: USBRSTLIMIT Modality: US Procedure: BREAST LIMITED UNILATERAL. The upper central aspect of the left breast was examined with ultrasound. FINDINGS: There is a 5 mm x 4 mm x 2 mm cyst at the 12 o'clock position of the breast at 7 cm from the nipple. US/Breast Limited Unilateral IMPRESSION: 5 mm x 4 mm x 2 mm cyst at the 12 o'clock position of the breast at 7 cm from t he nipple. BI-RADS 2: BENIGN RECOMMENDATION: Routine annual follow-up in 1 Year Reading Location: [place] [address]
== END | disposition home or self-care (01) ==
PROVIDERS: PCP Family Medicine
DX: R92.8 Other abnormal and inconclusive findings on diagnostic imaging of breast (principal)
CPT/HCPCS: 76642

== ENCOUNTER → 2025-06-14 | Outpatient (CLI) | payer MEDICARE, SELFPAY ==
--- NOTE | 2025-06-14 12:33 | RAD_ITS ---
RAD/Lumbar Spine 2 or 3 Views
--- NOTE | 2025-06-14 12:57 | RAD_ITS ---
PROCEDURE: RAD/Thoracic Spine 3 Views
== END | disposition home or self-care (01) ==
PROVIDERS: PCP Family Medicine; Referring Provider Family Medicine; Visit Provider Family Medicine
DX: M54.30 Sciatica, unspecified side (principal)
CPT/HCPCS: 72072; 72100